=== PATIENT | male | born 1950 | race Caucasian/White ===

== ENCOUNTER → 2023-05-27 07:36 | Outpatient (REF) | payer BC, SELFPAY | LOC: RAD 07:36 | PROVIDERS: ATTENDING PHYSICIAN Surgery Vascular Surgery; FAMILY PHYSICIAN Family Medicine | DX: I86.8 Varicose veins of other specified sites (principal) | CPT/HCPCS: 93971 ==

== ENCOUNTER → 2023-12-21 06:18 | Day surgery (SDC) | payer BC, SELFPAY | LOC: GI 06:18 | PROVIDERS: ATTENDING PHYSICIAN Internal Medicine Gastroenterology | DX: K51.00 Ulcerative (chronic) pancolitis without complications (principal); Z53.9 Procedure and treatment not carried out, unspecified reason; K51.80 Other ulcerative colitis without complications | CPT/HCPCS: 45380; 88305; 88342 ==

== ENCOUNTER → 2024-04-08 09:22 | Outpatient (REF) | payer BC, SELFPAY | LOC: HWRAD 09:22 | PROVIDERS: ATTENDING PHYSICIAN Internal Medicine Critical Care Medicine; FAMILY PHYSICIAN Family Medicine | DX: J84.9 Interstitial pulmonary disease, unspecified (principal) | CPT/HCPCS: 71046 ==

== ENCOUNTER 2024-05-04 08:32 | Day surgery (SDC) | payer BC, SELFPAY | END 2024-05-04 12:54 | disposition home or self-care (01) | LOC: GI 08:32 | PROVIDERS: ATTENDING PHYSICIAN Internal Medicine Gastroenterology | DX: Z12.11 Encounter for screening for malignant neoplasm of colon (principal); K51.80 Other ulcerative colitis without complications; Z98.0 Intestinal bypass and anastomosis status | CPT/HCPCS: 45380; 88305 ==

== ENCOUNTER → 2024-06-06 07:50 | Outpatient (REF) | payer BC, SELFPAY | LOC: RAD 07:50 | PROVIDERS: ATTENDING PHYSICIAN Surgery Vascular Surgery; FAMILY PHYSICIAN Family Medicine | DX: I86.8 Varicose veins of other specified sites (principal) | CPT/HCPCS: 93971 ==

== ENCOUNTER 2024-07-12 14:06 | Inpatient (IN) | payer MEDICARE, BC, SELFPAY ==
[2024-07-01 09:00] LABS: Hematocrit 44.3 % (39.0-52.0); Hemoglobin 15.7 g/dL (13.0-18.0); Mean Corp Hgb Conc. 35.4 g/dL (33.0-37.0); Mean Corpuscular Hgb 31.4 pg (27.0-31.0); Mean Corpuscular Volume 88.6 fL (80.0-94.0); Mean Platelet Volume 10.4 fL (7.4-10.4); Platelet Count 227 10^3/uL (130-400); White Blood Cell Count 10.7 10^3/uL (4.8-10.8)
[2024-07-01 09:09] LABS: INR 0.99; PT 13.4 Sec (11.4-14.6)
[2024-07-01 09:10] LABS: APTT 36.1 Sec (23.4-35.0)
[2024-07-01 10:21] LABS: Glycohemoglobin (HgbA1c) 5.1 % (4.0-5.6)
[2024-07-01 11:14] LABS: ALT (SGPT) 19 U/L (0-50); AST (SGOT) 21 U/L (17-59); Albumin 4.1 g/dl (3.5-5.0); Alkaline Phosphatase 71 U/L (38-126); Blood Urea Nitrogen 15 mg/dl (9-20); Calcium 8.9 mg/dl (8.4-10.2); Carbon Dioxide 24 mmol/L (22-30); Chloride 105 mmol/L (98-107); Glucose 91 mg/dl (70-99); Potassium 4.2 mmol/L (3.5-5.1); Sodium 141 mmol/L (135-145); Total Bilirubin 0.6 mg/dl (0.2-1.3); eGFR > 60.00
[2024-07-01 13:20] VITALS: BMI 30.6
[2024-07-01 15:10] LABS: Beta HCG Quantitative < 2.39 mIU/ml
[2024-07-01 17:17] LABS: CEA 0.66 ng/ml
[2024-07-12 14:30] VITALS: BP 140/70
--- NOTE | 2024-07-12 14:30 | HPS.HSE ---
Family Physician
-
Family Physician: Atif Hernandez
Chief Complaint
-
ulcerative colitis
History of Present Illness
74-year-old male with a history of ulcerative colitis presents today for a bowel prep prior to scheduled surgery tomorrow. He initially saw Dr. Sharma on 05/30/2024 in clinic, referred by Dr. Franks, for management of dysplasia in the setting of
chronic ulcerative colitis. He has been undergoing surveillance colonoscopies throughout the years on 05/04/2024 there is diffuse moderate inflammation in the entire remaining colon that was worse distally. The biopsies revealed mild to moderate
chronic active colitis and a biopsy at 40 cm showed dysplasia. At 30 cm there was low-grade dysplasia and at 10 smears there is high-grade dysplasia in the background of chronic active colitis. In the past he underwent a laparoscopic right
colectomy in 2013 for an adenoma with focal high-grade dysplasia. He also underwent an open umbilical hernia repair at the same time. Currently he has multiple bowel movements daily and often at times has urgency and incontinence. He denies any
abdominal pain or bleeding. He is on Skyrizi and mesalamine. He had a long discussion with Dr. Sharma in clinic regarding the above findings. It was determined the patient would undergo a robotic proctocolectomy. The patient agreed to proceed.
He has been admitted to undergo a bowel prep today and then will undergo surgery tomorrow.
Medical History
Past Medical History
Past Medical History: Reports Other
Additional Past Medical History:
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 C. difficile
Past Surgical History: Reports Other
Additional Past Surgical History:
Right ankle, bilateral knee meniscus repair, ankle debridement, ACL repair, cataract surgery, laparoscopic right colectomy in 2013, left knee replacement
Social History
Tobacco: Former Smoker (02-apbi-lxan history quit in 1989)
Drug: None
Family History
Family History: Not pertinent
Allergies / Home Medications
Allergies reflects when Allergies were last updated in [employer].
Home Medications with original date entered in [employer]
Allergy/Medication List:
Allergies: Remicade, pollen
Medications:
B12 1 pill daily
Claritin 10 mg p.o. daily
Irbesartan 150 mg p.o. daily
Iron supplement 325 mg p.o. daily
Mesalamine 1.2 g tablet delayed release 2 tabs with a meal
Multivitamin 1 tab daily
Probiotic 250 mg capsule once daily
Simethicone as needed
Skyrizi infusion
Vitamin D3
Review of Systems
-
History Source: Patient
A 12 point ROS was completed and negative except as noted: Yes
Abdomen/GI: Reports Other (Urgency and incontinence)
Physical Exam
Physical Exam
General: Well Developed, Well Nourished and No Apparent Distress
GI: Soft, Non Tender and Non Distended
Skin: Warm and Dry
Neuro: AO x 3
Psych: Calm
Laboratory Results
-
Laboratory Results
PT 13.4 Sec (11.4-14.6) 07/01/24 06:56
INR 0.99 07/01/24 06:56
APTT 36.1 Sec (23.4-35.0) H 07/01/24 06:56
Total Bilirubin 0.6 mg/dl (0.2-1.3) 07/01/24 06:56
AST 21 U/L (17-59) 07/01/24 06:56
ALT 19 U/L (0-50) 07/01/24 06:56
Alkaline Phosphatase 71 U/L (38-126) 07/01/24 06:56
Data Reviewed
-
Old Records: Reviewed
Impression/Plan
-
IMPRESSION: 74-year-old male with a history of ulcerative colitis presents to [facility] for a preop bowel prep followed by a proctosigmoidectomy tomorrow
PLAN:
- Labs pending
- Clear liquids today and n.p.o. at midnight
- Preop medications ordered
- Bowel prep today
- Notified wound RN patient is here and undergoing surgery
--- NOTE | 2024-07-12 14:41 | PTCARENOTE ---
Pt arrived to 2S via wheelchair. ambulated to bed independently gait steady. Full assessment completed, stoma markings noted. ONDINA RN and Daisha Bryant PA-c notified of pts arrival. Pt instructed to ring for assistance, verbalized understanding. Bed
locked and in the lowest position, safety maintained. Oriented to room and call tan, family at bedside.
[2024-07-12] MEDS: FLAGYL 1000 MG PO ×2 (14:55→15:35)
[2024-07-12] MEDS: NEOMYCIN 1000 MG PO ×2 (14:55→15:35)
[2024-07-12] MEDS: NULYTELY SOLUTION 4 LITERS PO (15:36)
[2024-07-12] MEDS: NSS 1000 IV (15:39)
[2024-07-12 15:49] LABS: % Basophils 0.6 % (0-2); % Eosinophils 2.5 % (0-6); % Immature Granulocytes 0.2 % (0-0.5); % Lymphocytes 14.2 % (20.5-51.1); % Monocytes 14.1 % (1.7-9.3); % Neutrophils 68.4 % (42.2-75.2); Absolute Basophils 0.1 10^3/uL (0-0.2); Absolute Eosinophils 0.2 10^3/uL (0-0.7); Absolute Lymphocytes 1.2 10^3/uL (1.2-3.4); Absolute Monocytes 1.1 10^3/uL (0.1-0.6); Absolute Neutrophils 5.5 10^3/uL (1.4-6.5); Hematocrit 41.1 % (39.0-52.0); Hemoglobin 14.6 g/dL (13.0-18.0); Mean Corp Hgb Conc. 35.5 g/dL (33.0-37.0); Mean Corpuscular Hgb 31.3 pg (27.0-31.0); Mean Platelet Volume 9.9 fL (7.4-10.4); Nucleated Red Blood Cells % 0 % (-); Platelet Count 201 10^3/uL (130-400); Red Blood Cell Count 4.67 10^6/uL (4.70-6.10); White Blood Cell Count 8.1 10^3/uL (4.8-10.8)
[2024-07-12 15:59] LABS: INR 1.02; PT 13.7 Sec (11.4-14.6)
[2024-07-12 16:00] LABS: APTT 35.4 Sec (23.4-35.0)
[2024-07-12 16:02] LABS: Blood Urea Nitrogen 9 mg/dl (9-20); Calcium 8.9 mg/dl (8.4-10.2); Carbon Dioxide 25 mmol/L (22-30); Chloride 110 mmol/L (98-107); Estimated Creatinine Clearance 79 ml/min; Glucose 87 mg/dl (70-99); Potassium 4.3 mmol/L (3.5-5.1); Sodium 140 mmol/L (135-145); eGFR > 60.00
[2024-07-12 23:22] VITALS: BP 131/71
[2024-07-13] VITALS (12 sets, daily range): BP systolic 108–135; BP diastolic 61–90
[2024-07-13] MEDS: NEOMYCIN 1000 MG PO
[2024-07-13] MEDS: FLAGYL 1000 MG PO
--- NOTE | 2024-07-13 04:29 | PTCARENOTE ---
pt able tolerate golyte , BM observed clear to yellow fluid, no solid BM noted.
[2024-07-13] MEDS: NSS 1000 IV (05:38)
[2024-07-13] MEDS: HEPARIN 5000 UNITS SC (05:53)
[2024-07-13] MEDS: TYLENOL 1000 MG PO (05:53)
[2024-07-13] MEDS: ENTEREG 12 MG PO (05:54)
[2024-07-13] MEDS: NEURONTIN 600 MG PO (05:54)
[2024-07-13 07:25] LABS: % Basophils 0.4 % (0-2); % Eosinophils 2.7 % (0-6); % Immature Granulocytes 0.3 % (0-0.5); % Lymphocytes 12.4 % (20.5-51.1); % Monocytes 14.5 % (1.7-9.3); % Neutrophils 69.7 % (42.2-75.2); Absolute Eosinophils 0.2 10^3/uL (0-0.7); Absolute Lymphocytes 0.9 10^3/uL (1.2-3.4); Hemoglobin 14.6 g/dL (13.0-18.0); Mean Corp Hgb Conc. 34.8 g/dL (33.0-37.0); Mean Corpuscular Hgb 30.7 pg (27.0-31.0); Mean Corpuscular Volume 88.4 fL (80.0-94.0); Mean Platelet Volume 10.1 fL (7.4-10.4); Nucleated Red Blood Cells % 0 % (-); Platelet Count 216 10^3/uL (130-400); Red Blood Cell Count 4.75 10^6/uL (4.70-6.10); Red Cell Dist. Width 12.9 % (11.5-14.5); White Blood Cell Count 7.1 10^3/uL (4.8-10.8)
--- NOTE | 2024-07-13 07:37 | PTCARENOTE ---
Geraldine pts granddaughter to be notified post sx [phone].
[2024-07-13 07:40] LABS: Blood Urea Nitrogen 8 mg/dl (9-20); Calcium 8.7 mg/dl (8.4-10.2); Carbon Dioxide 24 mmol/L (22-30); Chloride 107 mmol/L (98-107); Estimated Creatinine Clearance 79 ml/min; Glucose 78 mg/dl (70-99); Potassium 4.1 mmol/L (3.5-5.1); Sodium 140 mmol/L (135-145); eGFR > 60.00
--- NOTE | 2024-07-13 16:05 | W.IMMPOSTOP ---
Surgical Immed Post Op Note
-
Primary Surgeon: Angelito Sharma MD
Revenue Accountant: AURELIANO Verduzco
Pre-op Diagnosis: Chronic ulcerative colitis with severe dysplasia
Post-op Diagnosis: Same
Procedure Performed: Robotic proctocolectomy with permanent ileostomy
Anesthesia Type: GET
Specimen / Cultures: Colon and rectum (previous anastomosis is proximal)
Estimated Blood Loss: 200cc
Complications: None
Operative Findings: Chronic ulcerative colitis
Proctectomy with 1cm cuff of rectum left
Previous ileocolectomy
No obvious cancer or evidence of metastatic disease
Small bilateral indirect inguinal hernias
NGT in the stomach and #19 Lucio drain in the pelvis
Pema ileostomy
Left update message with his granddaughter.
--- NOTE | 2024-07-13 16:21 | CM ---
Patient not in room, Patient in OR, no family at bedside or waiting room. Will need to complete assessment.
[2024-07-13 16:56] LABS: Hematocrit 36.7 % (39.0-52.0); Hemoglobin 13.2 g/dL (13.0-18.0); Mean Corpuscular Volume 89.1 fL (80.0-94.0); Mean Platelet Volume 9.6 fL (7.4-10.4); Platelet Count 197 10^3/uL (130-400); Red Blood Cell Count 4.12 10^6/uL (4.70-6.10); Red Cell Dist. Width 12.9 % (11.5-14.5); White Blood Cell Count 17.2 10^3/uL (4.8-10.8)
[2024-07-13 17:12] LABS: Blood Urea Nitrogen 11 mg/dl (9-20); Calcium 7.3 mg/dl (8.4-10.2); Carbon Dioxide 22 mmol/L (22-30); Chloride 108 mmol/L (98-107); Estimated Creatinine Clearance 79 ml/min; Glucose 172 mg/dl (70-99); Potassium 4.4 mmol/L (3.5-5.1); Sodium 138 mmol/L (135-145); eGFR > 60.00
--- NOTE | 2024-07-13 17:53 | PTCARENOTE ---
patient returned from PACU. lethargic, arousable to voice. 2L O2 via NC, HR reg. abdomen with 5 lap sites and RUQ ileostomy, LLQ EDDIE drain with small amount of sang output. NG tube to low cont suction. patient has 16 Fr Nance catheter draining clear
yellow and secured with stat lock.
[2024-07-13] MEDS: NORMOSOL-R/PLASMALYTE-A 1000 IV (18:12)
[2024-07-13] MEDS: TORADOL 15 MG IV ×2 (18:13→23:05)
[2024-07-13] MEDS: TYLENOL 650 MG PO ×2 (20:40→23:53)
[2024-07-14 03:31] VITALS: BP 117/64
[2024-07-14] MEDS: TORADOL 15 MG IV ×4 (04:45→22:49)
[2024-07-14] MEDS: TYLENOL 650 MG PO ×4 (04:45→21:00)
[2024-07-14] MEDS: NORMOSOL-R/PLASMALYTE-A 1000 IV ×2 (04:45→17:03)
[2024-07-14 06:21] VITALS: BMI 29.8
[2024-07-14 07:42] LABS: % Basophils 0.1 % (0-2); % Immature Granulocytes 0.6 % (0-0.5); % Lymphocytes 2.8 % (20.5-51.1); % Monocytes 11.5 % (1.7-9.3); Absolute Immature Granulocytes 0.1 10^3/uL (0-0.05); Absolute Lymphocytes 0.6 10^3/uL (1.2-3.4); Absolute Monocytes 2.4 10^3/uL (0.1-0.6); Absolute Neutrophils 17.8 10^3/uL (1.4-6.5); Hematocrit 37.3 % (39.0-52.0); Hemoglobin 13.1 g/dL (13.0-18.0); Mean Corp Hgb Conc. 35.1 g/dL (33.0-37.0); Mean Corpuscular Volume 88.4 fL (80.0-94.0); Mean Platelet Volume 10.1 fL (7.4-10.4); Nucleated Red Blood Cells % 0 % (-); Platelet Count 209 10^3/uL (130-400); Red Blood Cell Count 4.22 10^6/uL (4.70-6.10); Red Cell Dist. Width 13.2 % (11.5-14.5); White Blood Cell Count 20.9 10^3/uL (4.8-10.8)
[2024-07-14] MEDS: CRESTOR 5 MG PO (07:48)
[2024-07-14] MEDS: AVAPRO 75 MG PO (07:48)
[2024-07-14] MEDS: ENTEREG 12 MG PO ×2 (07:49→21:00)
[2024-07-14] MEDS: INVANZ 60 MG IV (07:49)
[2024-07-14] MEDS: ZYRTEC 10 MG PO (07:49)
[2024-07-14 07:55] VITALS: BP 114/64
[2024-07-14 08:05] LABS: Blood Urea Nitrogen 13 mg/dl (9-20); Calcium 7.7 mg/dl (8.4-10.2); Carbon Dioxide 23 mmol/L (22-30); Chloride 107 mmol/L (98-107); Estimated Creatinine Clearance 64 ml/min; Glucose 121 mg/dl (70-99); Potassium 4.5 mmol/L (3.5-5.1); Sodium 138 mmol/L (135-145); eGFR > 60.00
--- NOTE | 2024-07-14 08:12 | W.PN.CRS1 ---
Today's Communication / Plan
-
maintain ngt
colostomy teaching
oob with pt/ot
lovenox
d/c ramirez
Assessment/Plan
-
POD#1 Robotic proctocolectomy with permanent ileostomy
WBC: 20.9, Hgb 13.1
Vitals normal
NGT: 100ml
EDDIE drain: 390ml
-Maintain NGT until bowel function
-Wound RN for colostomy teaching
-OOB with PT/OT
-D/C ramirez
-Start lovenox for dvt prophylaxis, TEDS/SCDS in place
-Pain control: tylenol/toradol standing, Dilaudid PRN
-Maintain EDDIE drain until discharge
-OR pathology pending
Subjective Data
Procedure
07/13/2024- Robotic proctocolectomy with permanent ileostomy
Subjective Data
Date of Service: July 14, 2024
Patient states he wells well. His pain is controlled. He has no nausea or vomiting. An ngt is in place. He currently has no complaints.
Objective Data
-
Vital Signs
Temp Pulse Resp BP Pulse Ox
98.1 F 82 18 117/64 96
07/14/24 03:31 07/14/24 03:31 07/14/24 03:31 07/14/24 03:31 07/14/24 03:31
Intake & Output
07/13/24 07/14/24 07/15/24
06:59 06:59 06:59
Intake Total 2144 960 / 1050 90 / 90
Output Total 1939 100 / 100
Balance 2144 -980 / -990 -10 / -10
Intake:
Oral fluids 1919
IV fluids (Total) 225 / 225 960 / 960
Amount instilled into GI Tube ( 90 / 90
Total)
[place]ump 90 / 90
Output:
Liquid stool amount 350 / 350
Ileostomy 300 / 300
Rectum 50 / 50
Drain Output (Total) 390 / 390
Left Lower Abdomen A 390 / 390
Gastrointestinal tube output ( 100 / 100
Total)
[place] Sump 100 / 100
Urine, Ramirez 1200 / 1200
Lab Results
07/14/24 06:32
07/14/24 06:32
Physical Exam
-
General: No Acute Distress and AOx3
Abdomen: Soft, Non Distended, Tender (around incisions (mild)) and Other (colostomy warm and pink, no output yet)
Skin: Warm and Dry
--- NOTE | 2024-07-14 11:43 | WOUNDNOTE ---
[facility] RN note: Patient s/p end ileostomy yesterday. Stoma pink and budded. Small liquid dark brown effluent emptied from pouch. No flatus. Instructed patient how to open and close pouch, how to cut wafer and snap on pouch. Ostomy supplies ([place]
wafer # [id number], Phylicia seal and [place] pouch # [id number]) and ileostomy teaching folder given. Patient gave permission and signed [employer] secure ostomy starter kit fax request form. Sacral/buttocks with some MASD (patient confirmed was present on
admission). Area cleansed with angela cleansing wipe. Skin on heels intact. Patient turns self in bed. Heels off bed with pillow. Patient plans to request VN for discharge. Will plan for appliance change with teaching tomorrow.
[2024-07-14 12:58] VITALS: BP 130/66; PULSE 82; O2SAT 88
--- NOTE | 2024-07-14 14:03 | PTCARENOTE ---
ramirez removed and the patient is due to void by 6pm. oob to a chair. NG tube to low cont suction. IVF infusing. all needs anticipated
[2024-07-14] MEDS: TYLENOL PO (14:09)
--- NOTE | 2024-07-14 14:14 | WOUNDNOTE ---
[facility] RN note: Enrolled patient in [place] ostomy secure starter kit.
[2024-07-14 15:10] VITALS: BP 121/72
--- NOTE | 2024-07-14 15:54 | CM ---
Reviewed the chart notes and spoke with the patient at the bedside. The patient's granddaughter resides with the patient in a three story home with one step to enter. The patient reports no DME or SNF in the past. Has had [facility] for infusion
of Brayan. The patient confirmed [facility] of choice [facility]. Order received for VN. Discussed with patient area VNs. Selected . Referral sent via [facility] Port. CM continues to be available to patient/family and is
monitoring medical plan for needs at discharge.
Plan: Discharge to home with VN services.
[2024-07-14] MEDS: LOVENOX 40 MG SC (17:16)
[2024-07-14] MEDS: MELATONIN 5 MG TUBE (22:48)
[2024-07-14 23:00] VITALS: BP 143/71
[2024-07-15] MEDS: TYLENOL PO (00:45)
[2024-07-15] MEDS: TYLENOL 650 MG PO ×5 (04:11→19:44)
[2024-07-15] MEDS: TORADOL 15 MG IV ×4 (04:12→22:56)
[2024-07-15 05:48] VITALS: BMI 29.6
[2024-07-15 07:50] VITALS: BP 128/60
[2024-07-15] MEDS: INVANZ 60 MG IV (08:58)
[2024-07-15] MEDS: ZYRTEC 10 MG PO (08:59)
[2024-07-15] MEDS: AVAPRO 75 MG PO (08:59)
[2024-07-15] MEDS: ENTEREG 12 MG PO ×2 (08:59→19:44)
[2024-07-15] MEDS: CRESTOR 5 MG PO (08:59)
--- NOTE | 2024-07-15 09:04 | WOUNDNOTE ---
[facility] RN note: Patient's ileostomy appliance emptied for green/brown bilious like liquid. Patient's stoma pink and slightly budded. Peristomal skin intact. Patient reports he is moving often and getting out of bed. Reinstructed patient pouch emptying
and instructed how to change pouch using [place] wafer #[id number], Phylicia seal and [place] pouch # [id number]. Ostomy supplies and ileostomy teaching folder in room. Next appliance change due Thursday. VN planned when discharged.
[2024-07-15] MEDS: NORMOSOL-R/PLASMALYTE-A 1000 IV ×2 (09:05→17:08)
[2024-07-15 09:47] VITALS: BP 118/62; PULSE 81; O2SAT 94
--- NOTE | 2024-07-15 10:12 | CM ---
CM reviewed medical records. CM was consulted for VN. As per notes, patient has been referred to VN.
PLAN: home with VN for ostomy care/teaching.
--- NOTE | 2024-07-15 11:12 | VNURNOTE ---
Home Health Liaison met with patient at bedside to discuss [facility] nurse/therapy, visits, schedule and homebound status. Patient is agreeable and understands that visits at home will be 2-3 x per week to assess and teach medical management and ostomy
and drain teaching. Patient is aware that [facility] will contact them for start of care in 1-2 days after discharge from .
[facility] referral updated in [facility] Port, accepted.
[2024-07-15 12:04] VITALS: BMI 29.6
--- NOTE | 2024-07-15 12:04 | W.PN.CRS1 ---
Today's Communication / Plan
-
ngt removed
labs
?clears later
wound care
Assessment/Plan
-
POD#2 Robotic proctocolectomy with permanent ileostomy
Labs pending
Vitals normal
NGT: removed 07/15
VANIA drain: 400ml
-NGT removed by Dr. Sharma at bedside
-Wound RN for colostomy teaching
-OOB with PT/OT
-Straight cath x 1 after ramirez removal, if continues, will start Floxmax
-Lovenox for dvt prophylaxis, TEDS/SCDS in place
-Pain control: tylenol/toradol standing, Dilaudid PRN
-Maintain VANIA drain until discharge
-OR pathology pending
-Will need Eliquis 2.5mg BID for 3 weeks on discharge due to IBD
-Possible clears later today if no nausea or vomiting, will re-evaluate later today
Subjective Data
Procedure
07/13/2024- Robotic proctocolectomy with permanent ileostomy
Subjective Data
Date of Service: July 15, 2024
Patient states he feels well. He has no nausea or vomiting. Pain controlled. Awaiting bowel function. He had to straight cath yesterday.
Objective Data
-
Vital Signs
Temp Pulse Resp BP Pulse Ox
98.1 F 81 18 128/60 94
07/15/24 07:50 07/15/24 07:50 07/15/24 07:50 07/15/24 07:50 07/15/24 07:50
Intake & Output
07/14/24 07/15/24 07/16/24
06:59 06:59 06:59
Intake Total 960 / 1050 1230 / 1230
Output Total 1939 / 2039 2160 / 216 80 / 80
Balance -980 / -990 -930 / -930 -80 / -80
Intake:
Oral fluids 90 / 90
IV fluids (Total) 960 / 960 960 / 960
Amount instilled into GI Tube ( 180 / 180
Total)
[place] Sump 180 / 180
Output:
Liquid stool amount 350 / 350 525 / 525
Ileostomy 300 / 300 525 / 525
Rectum 50 / 50
Drain Output (Total) 390 / 390 235 / 235 80 / 80
Left Lower Abdomen A 390 / 390 235 / 235 80 / 80
Gastrointestinal tube output ( 500 / 500
Total)
[place] Sump 500 / 500
Urine, Ramirez 1200 / 1200
Urine, Voided 300 / 300
Straight cath output 600 / 600
Other:
Number of approximated SMALL 1
amounts of urine
Number of approximated MODERATE 1
amounts of urine
Lab Results
07/14/24 06:32
07/14/24 06:32
Physical Exam
-
General: No Acute Distress and AOx3
Abdomen: Soft, Non Distended, Non Tender and Other (vania serosanginous, ileostomy warm and pink)
Skin: Warm and Dry
Incision: Clear, Dry, Intact
[2024-07-15 12:32] LABS: % Basophils 0.2 % (0-2); % Eosinophils 0.1 % (0-6); % Immature Granulocytes 0.5 % (0-0.5); % Lymphocytes 4.1 % (20.5-51.1); % Monocytes 13.1 % (1.7-9.3); Absolute Immature Granulocytes 0.1 10^3/uL (0-0.05); Absolute Lymphocytes 0.8 10^3/uL (1.2-3.4); Absolute Monocytes 2.5 10^3/uL (0.1-0.6); Absolute Neutrophils 15.8 10^3/uL (1.4-6.5); Hemoglobin 14.5 g/dL (13.0-18.0); Mean Corp Hgb Conc. 34.5 g/dL (33.0-37.0); Mean Corpuscular Volume 89.7 fL (80.0-94.0); Mean Platelet Volume 9.9 fL (7.4-10.4); Nucleated Red Blood Cells % 0 % (-); Platelet Count 222 10^3/uL (130-400); Red Blood Cell Count 4.68 10^6/uL (4.70-6.10); Red Cell Dist. Width 13.4 % (11.5-14.5); White Blood Cell Count 19.3 10^3/uL (4.8-10.8)
[2024-07-15 12:52] LABS: Blood Urea Nitrogen 16 mg/dl (9-20); Calcium 8.5 mg/dl (8.4-10.2); Carbon Dioxide 27 mmol/L (22-30); Chloride 107 mmol/L (98-107); Estimated Creatinine Clearance 58 ml/min; Glucose 88 mg/dl (70-99); Potassium 4.3 mmol/L (3.5-5.1); Sodium 140 mmol/L (135-145); eGFR > 60.00
[2024-07-15] MEDS: LOVENOX 40 MG SC (15:38)
[2024-07-15] MEDS: FLOMAX 0.8 MG PO (15:40)
[2024-07-15 15:56] VITALS: BP 116/54
[2024-07-15] MEDS: DILAUDID 0.5 MG IV (19:47)
[2024-07-15 23:03] VITALS: BP 129/60
[2024-07-16] MEDS: TYLENOL 650 MG PO ×6 (00:29→19:34)
[2024-07-16] MEDS: TORADOL 15 MG IV ×3 (04:31→16:01)
[2024-07-16] MEDS: NORMOSOL-R/PLASMALYTE-A 1000 IV ×2 (04:57→16:01)
[2024-07-16 06:00] VITALS: BMI 29.4
--- NOTE | 2024-07-16 06:17 | PTCARENOTE ---
aprox 4am pt ambulated to restroom attempted to void 10cc of tea colored , blood tinged urine in urinal. Pt was BS 410cc and st cath for 380cc.
[2024-07-16 07:09] LABS: % Basophils 0.2 % (0-2); % Eosinophils 0.4 % (0-6); % Immature Granulocytes 0.6 % (0-0.5); % Lymphocytes 3.9 % (20.5-51.1); % Monocytes 12.4 % (1.7-9.3); % Neutrophils 82.5 % (42.2-75.2); Absolute Eosinophils 0.1 10^3/uL (0-0.7); Absolute Immature Granulocytes 0.1 10^3/uL (0-0.05); Absolute Lymphocytes 0.7 10^3/uL (1.2-3.4); Absolute Monocytes 2.2 10^3/uL (0.1-0.6); Absolute Neutrophils 14.5 10^3/uL (1.4-6.5); Hematocrit 38.2 % (39.0-52.0); Hemoglobin 13.3 g/dL (13.0-18.0); Mean Corp Hgb Conc. 34.8 g/dL (33.0-37.0); Mean Platelet Volume 10.1 fL (7.4-10.4); Nucleated Red Blood Cells % 0 % (-); Platelet Count 207 10^3/uL (130-400); Red Blood Cell Count 4.29 10^6/uL (4.70-6.10); Red Cell Dist. Width 13.3 % (11.5-14.5); White Blood Cell Count 17.5 10^3/uL (4.8-10.8)
[2024-07-16 07:36] LABS: Blood Urea Nitrogen 16 mg/dl (9-20); Carbon Dioxide 27 mmol/L (22-30); Chloride 106 mmol/L (98-107); Estimated Creatinine Clearance 64 ml/min; Glucose 129 mg/dl (70-99); Sodium 137 mmol/L (135-145); eGFR > 60.00
[2024-07-16 07:40] VITALS: BP 105/89
[2024-07-16] MEDS: CRESTOR 5 MG PO (08:41)
[2024-07-16] MEDS: ZYRTEC 10 MG PO (08:41)
[2024-07-16] MEDS: ENTEREG 12 MG PO ×2 (08:41→19:34)
[2024-07-16] MEDS: FLOMAX 0.8 MG PO (08:42)
[2024-07-16] MEDS: AVAPRO PO (08:42)
[2024-07-16] MEDS: INVANZ 60 MG IV (08:43)
--- NOTE | 2024-07-16 13:42 | W.PN.GS2 ---
Today's Communication / Plan
-
-LRD
-If further issues with retention replace Ramirez, obtain UA/UCx
-Trend WBC
Assessment / Plan
-
Patient is a 74 yo M
POD#3 Robotic proctocolectomy with permanent ileostomy
AVSS
Labs notable for downtrend in WBC, stable Hb, normal renal function
Ostomy 1800 cc
EDDIE drain: 215 cc
Postop issues with persistent leukocytosis of unknown exact origin and urinary retention. Continue to BladderScan and if unable to void would recommend replacement of Ramirez. Continue with Flomax. Obtain urine sample for urinalysis and culture.
Completed course of Invanz. Given tolerance of liquid diet and ostomy function plan to advance diet today.
-LRD
-Pain control: Tylenol, Toradol, Oxycodone, Dilaudid PRN
-If further issues with retention replace Ramirez, obtain UA/UCx
-Wound RN for colostomy teaching
-OOB with PT/OT
-DVT: Lovenox, SCDs
-Trend WBC
-Maintain EDDIE drain until discharge
-OR pathology pending
-Will need Eliquis 2.5mg BID for 3 weeks on discharge due to IBD
Subjective Data
-
Date of Service: July 16, 2024
Frustration and discomfort with need for repeat straight catheterizations. Denies any burning with urination. No prior issues reported. No nausea or vomiting. Abdominal pain well-controlled. Passing flatus and loose stool via ileostomy.
Ambulating. Afebrile.
Objective Data
-
Intake and Output
07/15/24 07/16/24 07/17/24
06:59 06:59 06:59
Intake Total 1230 / 1230 2610 / 2610
Output Total 2160 / 2160 2735 / 2735
Balance -930 / -930 -125 / -125
Intake:
Oral fluids 90 / 90 630 / 630
IV fluids (Total) 960 / 960 1920 / 1920
IV piggybacks 60 / 60
Amount instilled into GI Tube ( 180 / 180
Total)
[place] Sump 180 / 180
Output:
Liquid stool amount 525 / 525 2049
Ileostomy 525 / 525 2049
Drain Output (Total) 235 / 235 295 / 295
Left Lower Abdomen A 235 / 235 295 / 295
Gastrointestinal tube output ( 500 / 500
Total)
[place] Sump 500 / 500
Urine, Voided 300 / 300 10 / 10
Straight cath output 600 / 600 380 / 380
Other:
Number of approximated SMALL 1
amounts of urine
Number of approximated MODERATE 1
amounts of urine
Vital Signs
Temp Pulse Resp BP Pulse Ox
98.3 F 92 18 105/89 93
07/16/24 07:40 07/16/24 08:42 07/16/24 07:40 07/16/24 08:42 07/16/24 07:40
Lab Results
07/16/24 06:11
07/16/24 06:11
Calcium 8.0 mg/dl (8.4-10.2) L 07/16/24 06:11
Total Bilirubin 0.6 mg/dl (0.2-1.3) 07/01/24 06:56
AST 21 U/L (17-59) 07/01/24 06:56
ALT 19 U/L (0-50) 07/01/24 06:56
Alkaline Phosphatase 71 U/L (38-126) 07/01/24 06:56
Total Protein 7.0 g/dl (6.3-8.2) 07/01/24 06:56
Albumin 4.1 g/dl (3.5-5.0) 07/01/24 06:56
Physical Exam
-
Gen: NAD
Abd: soft, NT, minimal distension, non-peritoneal, incisions c/d/i - no erythema, ecchymosis or drainage, ostomy PPV - liquid bilious stool in appliance
Patient has a ramirez catheter: No
Patient has a central line: No
[2024-07-16 14:36] LABS: Urine Albumin 2+ (Neg - Trace); Urine Bilirubin Negative (Negative); Urine Character Clear (Clear); Urine Color Amber; Urine Glucose Negative (Negative); Urine Ketone Negative (Negative); Urine Leukocyte 1+ (Negative); Urine Nitrite Positive (Negative); Urine Occult Blood 4+ (Negative); Urine Urobilinogen 1+ (Neg - 1+)
--- NOTE | 2024-07-16 14:38 | PTCARENOTE ---
Nance catheter inserted by this RN d/t urinary retention. Bladder scanned for 370 at 1200, bladder scanned again at 1400 for 430. Patient attempted voiding multiple times but was unsuccessful. Stated he did not feel the urge to void. Nance to be
removed 06/19 at 0600.
[2024-07-16 14:47] LABS: Urine Squamous Cell 0-2 /LPF (Few)
[2024-07-16 14:48] LABS: Urine Bacteria Few (Negative); Urine Red Blood Cell 50-60 /HPF (0-2); Urine White Cell 0-2 /HPF (0-5)
[2024-07-16 15:50] VITALS: BP 116/57
[2024-07-16] MEDS: LOVENOX 40 MG SC (17:22)
[2024-07-16] MEDS: DILAUDID 0.5 MG IV (19:34)
--- NOTE | 2024-07-16 21:00 | PTCARENOTE ---
Educated pt on care of ileostomy; need for burping and emptying. Pt stated he has done this already multiple times. Pt was able to demonstrate understanding of how to burp, empty and clean appliance. Care ongoing.
[2024-07-16 22:57] VITALS: BP 120/59
[2024-07-17] MEDS: TYLENOL 650 MG PO ×6 (00:03→19:51)
[2024-07-17] MEDS: TORADOL 15 MG IV ×4 (00:04→16:59)
[2024-07-17 00:05] VITALS: BP 123/55
[2024-07-17 07:05] VITALS: BMI 29.1
[2024-07-17 08:06] LABS: Hematocrit 35.4 % (39.0-52.0); Hemoglobin 12.5 g/dL (13.0-18.0); Mean Corp Hgb Conc. 35.3 g/dL (33.0-37.0); Mean Corpuscular Hgb 31.3 pg (27.0-31.0); Mean Corpuscular Volume 88.7 fL (80.0-94.0); Mean Platelet Volume 9.9 fL (7.4-10.4); Platelet Count 221 10^3/uL (130-400); Red Blood Cell Count 3.99 10^6/uL (4.70-6.10); Red Cell Dist. Width 13.1 % (11.5-14.5); White Blood Cell Count 13.4 10^3/uL (4.8-10.8)
[2024-07-17 08:10] VITALS: BP 115/71
[2024-07-17 08:17] LABS: Blood Urea Nitrogen 19 mg/dl (9-20); Calcium 7.9 mg/dl (8.4-10.2); Carbon Dioxide 26 mmol/L (22-30); Chloride 107 mmol/L (98-107); Estimated Creatinine Clearance 64 ml/min; Glucose 91 mg/dl (70-99); Potassium 3.7 mmol/L (3.5-5.1); Sodium 137 mmol/L (135-145); eGFR > 60.00
[2024-07-17] MEDS: FLOMAX 0.8 MG PO (08:22)
[2024-07-17] MEDS: CRESTOR 5 MG PO (08:22)
[2024-07-17] MEDS: AVAPRO 75 MG PO (08:22)
[2024-07-17] MEDS: ENTEREG 12 MG PO ×2 (08:22→19:51)
[2024-07-17] MEDS: ZYRTEC 10 MG PO (08:22)
[2024-07-17] MEDS: NORMOSOL-R/PLASMALYTE-A IV (09:10)
[2024-07-17] MEDS: NSS 1000 IV (11:03)
--- NOTE | 2024-07-17 11:22 | W.PN.GS2 ---
Addendum entered and electronically signed by Umang Amezcua MD 07/17/24 13:31:
Patient seen and examined.
No specific complaints. Pain well-controlled. Does feel rundown. Tolerating diet, denies any nausea, vomiting, or increased abdominal distention. Passing liquid stool via ileostomy. Ramirez catheter placed and draining dark urine. Afebrile.
Ambulating.
Gen: NAD
Abd: soft, NT, minimal distension, non-peritoneal, incisions c/d/i - no erythema, ecchymosis or drainage, ostomy PPV - liquid dark bilious output, minimal debris
: Ramirez with dark urine and some sediment
Ostomy 1225 cc
EDDIE drain: 105 cc
Ramirez 900
Patient is a 74 yo M POD#4 robotic proctocolectomy with permanent ileostomy
AVSS
Labs notable for downtrend in WBC, mild acute anemia likely secondary to hemodilution as well as expected blood loss in OR, normal renal function
Postoperative monitoring of dietary tolerance as well as hydration status and ileostomy outputs. Plan to DC IV and administer a IV bolus of 1 L lactated Ringer's. Issues with urinary retention - Ramirez re-placed on 07/16, UA abnormal. Dispo plan
pending as patient lives alone and will likely need assistance with ostomy management.
Plan:
-LRD
-Pain control: Tylenol, Toradol, Oxycodone, Dilaudid PRN
-Follow UCx and WBC off abx
-Wound RN for colostomy teaching
-OOB with PT/OT. CM following to assist with dispo planning. Pt concerned about going home alone.
-DVT: Lovenox, SCDs
-Follow ileostomy outputs
-Maintain EDDIE drain until discharge
-OR pathology pending
-C/W Ramirez and flomax, will plan VT prior to d/c
-Will need Eliquis 2.5mg BID for 3 weeks on discharge due to IBD
Original Note:
Today's Communication / Plan
-
LRD
Ramirez
Assessment / Plan
-
Patient is a 74 yo M POD#4 Robotic proctocolectomy with permanent ileostomy
AVSS
Labs notable for downtrend in WBC
Mild acute anemia likely secondary to hemodilution as well as expected blood loss in OR
Good renal function
Ostomy 1225 cc
EDDIE drain: 105 cc
Ramirez 900
07/16: ramirez placed for urinary retention. UA abnormal.
Plan:
-LRD, continue
-Pain control: Tylenol, Toradol, Oxycodone, Dilaudid PRN
-Follow urine cx, wbc off abx
-Wound RN for colostomy teaching
-OOB with PT/OT. CM following to assist with dispo planning. Pt concerned about going home alone.
-DVT: Lovenox, SCDs
-Follow ileostomy outputs
-Maintain EDDIE drain until discharge
-OR pathology pending
-C/W ramirez and flomax, will plan VT prior to d/c
-Will need Eliquis 2.5mg BID for 3 weeks on discharge due to IBD
Subjective Data
-
Date of Service: July 17, 2024
Patient seen and examined at bedside with Dr. Amezcua. OOB to chair. Notes fatigue and low energy levels. Denies n/v. Tolerating diet. Minimal pain.
Objective Data
-
Intake and Output
07/16/24 07/17/24 07/18/24
06:59 06:59 06:59
Intake Total 2610 / 2610 1200 / 1200 1280 / 1280
Output Total 2735 / 2735 1730 / 1730 500 / 500
Balance -125 / -125 -530 / -530 780 / 780
Intake:
Oral fluids 630 / 630 240 / 240 480 / 480
IV fluids (Total) 1920 / 1920 960 / 960 800 / 800
IV piggybacks 60 / 60
Output:
Liquid stool amount 2049 1225 / 1225
Ileostomy 2049 1225 / 1225
Drain Output (Total) 295 / 295 55 / 55 50 / 50
Left Lower Abdomen A 295 / 295 55 / 55 50 / 50
Urine, Ramirez 450 / 450 450 / 450
Urine, Voided
Straight cath output 380 / 380
Other:
Number of approximated MODERATE 1
amounts of urine
Number of approximated LARGE 2
amounts of urine
Vital Signs
Temp Pulse Resp BP Pulse Ox
98.3 F 104 18 115/71 96
07/17/24 08:10 07/17/24 08:22 07/17/24 08:10 07/17/24 08:22 07/17/24 08:10
Lab Results
07/17/24 06:34
07/17/24 06:34
Calcium 7.9 mg/dl (8.4-10.2) L 07/17/24 06:34
Total Bilirubin 0.6 mg/dl (0.2-1.3) 07/01/24 06:56
AST 21 U/L (17-59) 07/01/24 06:56
ALT 19 U/L (0-50) 07/01/24 06:56
Alkaline Phosphatase 71 U/L (38-126) 07/01/24 06:56
Total Protein 7.0 g/dl (6.3-8.2) 07/01/24 06:56
Albumin 4.1 g/dl (3.5-5.0) 07/01/24 06:56
Physical Exam
-
Gen: NAD
Abd: soft, NT, minimal distension, non-peritoneal, incisions c/d/i - no erythema, ecchymosis or drainage, ostomy PPV - liquid bilious stool in appliance
Ramirez with dk wing/brown urine
Patient has a rmairez catheter: Yes
Patient has a central line: No
--- NOTE | 2024-07-17 14:10 | CM ---
CM met with pt at bedside to discuss dispo.
He states he is nervous to go home with VN and would like to consider SNF.
As pt has Medicare, no auth needed and pt with skilled need, although doing well in therapy.
CM will send referral to following SNFs: [facility], [facility], [facility].
Goal: short term SNF
[2024-07-17 15:59] VITALS: BP 130/67
[2024-07-17] MEDS: LOVENOX 40 MG SC (17:00)
--- NOTE | 2024-07-17 17:32 | PTCARENOTE ---
Patient has been emptying illeostomy on his own this shift. This nurse observed while patient effectively emptied illeostomy.
[2024-07-17] MEDS: TORADOL IV (23:07)
[2024-07-17] MEDS: TYLENOL PO (23:08)
[2024-07-17 23:10] VITALS: BP 140/65
[2024-07-18] MEDS: TYLENOL 650 MG PO ×4 (04:04→19:49)
[2024-07-18] MEDS: TORADOL 15 MG IV (04:05)
[2024-07-18 05:45] VITALS: BMI 29.3
--- NOTE | 2024-07-18 06:03 | PTCARENOTE ---
Addendum entered by Nathaly Garcia RN 07/18/24 06:14:
Dr. Amezcua notified.
Original Note:
Nance output 200cc of yellow urine overnight. Dr. Sharma notified. Care remains ongoing.
[2024-07-18 07:40] VITALS: BP 141/67
[2024-07-18 08:09] LABS: Hematocrit 36.2 % (39.0-52.0); Hemoglobin 12.7 g/dL (13.0-18.0); Mean Corp Hgb Conc. 35.1 g/dL (33.0-37.0); Mean Corpuscular Hgb 31.1 pg (27.0-31.0); Mean Corpuscular Volume 88.5 fL (80.0-94.0); Mean Platelet Volume 9.6 fL (7.4-10.4); Platelet Count 250 10^3/uL (130-400); Red Blood Cell Count 4.09 10^6/uL (4.70-6.10)
[2024-07-18 08:35] LABS: Blood Urea Nitrogen 16 mg/dl (9-20); Calcium 8.4 mg/dl (8.4-10.2); Carbon Dioxide 26 mmol/L (22-30); Chloride 110 mmol/L (98-107); Estimated Creatinine Clearance 70 ml/min; Glucose 111 mg/dl (70-99); Potassium 3.9 mmol/L (3.5-5.1); Sodium 140 mmol/L (135-145); eGFR > 60.00
[2024-07-18] MEDS: CRESTOR 5 MG PO (08:50)
[2024-07-18] MEDS: AVAPRO 75 MG PO (08:50)
[2024-07-18] MEDS: ENTEREG 12 MG PO (08:50)
[2024-07-18] MEDS: ZYRTEC 10 MG PO (08:53)
[2024-07-18] MEDS: FLOMAX 0.8 MG PO (08:53)
--- NOTE | 2024-07-18 09:20 | W.PN.CRS1 ---
Today's Communication / Plan
-
As below
Assessment/Plan
-
74-year-old male with PMH of UC (with dysplasia), OA, diverticulitis, HLD, kidney stones, history of C. difficile who presents for elective surgery
POD 5 robotic proctocolectomy with end ileostomy
AFVSS, EDDIE removed at bedside
WBC 11.0 from 13.4, Hb stable at 12.7, CR 1.0
� Continue regular diet
� Pain control with Tylenol, Toradol, Dilaudid and oxycodone as needed; discontinued Entereg
� Continue Flomax; will look into void trial versus discharge with leg bag; strict intake/output, ostomy output has decreased to appropriate range
� Continue DVT PPx with Lovenox
� Continue home meds
Dispo�okay for discharge to rehab
Subjective Data
Procedure
07/13/2024- Robotic proctocolectomy with permanent ileostomy
Subjective Data
Date of Service: July 18, 2024
No overnight events.
Pain controlled.
Denies nausea/vomiting. Tolerating diet.
+Ostomy output + Nance
Objective Data
-
Vital Signs
Temp Pulse Resp BP Pulse Ox
97.7 F 99 18 141/67 96
07/18/24 07:40 07/18/24 08:50 07/18/24 07:40 07/18/24 08:50 07/18/24 07:40
Intake & Output
07/17/24 07/18/24 07/19/24
06:59 06:59 06:59
Intake Total 1200 / 1200 2720 / 2720
Output Total 1730 / 1730 1668 / 1668 50 / 50
Balance -530 / -530 1052 / 1052 -50 / -50
Intake:
Oral fluids 240 / 240 1920 / 1920
IV fluids (Total) 960 / 960 800 / 800
Output:
Liquid stool amount 1225 / 1225 600 / 600
Ileostomy 1225 / 1225 600 / 600
Drain Output (Total) 268 / 268 50 / 50
Left Lower Abdomen A 268 / 268 50 / 50
Urine, Nance 450 / 450 800 / 800
Other:
Number of approximated MODERATE 1
amounts of urine
Number of approximated LARGE 2
amounts of urine
Number of unmeasured liquid
stools
Ileostomy 1
Lab Results
07/18/24 07:52
07/18/24 07:52
Physical Exam
-
General: No Acute Distress and AOx3
HEENT: Grossly Normal
Abdomen: Soft, Distended (Minimally distended), Tender (Appropriately tender near incisions), No Guarding, No Rebound and Other (Ostomy pink and productive of stool; EDDIE-serosanguineous output (removed at bedside))
Skin: Warm and Dry
Wound: No Signs of Infection, Dressing in Place (Dermabond) and No Skin Erythema
--- NOTE | 2024-07-18 10:30 | CM ---
Addendum entered by Maggie Piedra 07/18/24 11:29:
Patient agreeable to wheelchair van for transport.
Addendum entered by Maggie Piedra 07/18/24 11:18:
Per Melissa liaison bed available at [facility]
Patient agreeable with [facility]
IMM explained - verbalizes understanding
PLAN: [facility] today
report #: [phone]
fax #: [phone]
transportation forms on chart
Original Note:
Patient met at bedside
Referrals entered in careport-discussed with patient
Await responses
per nursing james to be dc
PLAN: SNF, pending bed availability
[2024-07-18] MEDS: TORADOL IV (11:00)
--- NOTE | 2024-07-18 15:12 | WOUNDNOTE ---
[facility] RN note: Patient for discharge to SNF rehab. Patient stated his daughter took his ostomy supplies to take to the rehab. Patient states he is independent with pouch emptying. Patient aware next ostomy appliance change is due tomorrow. Ostomy
appliance is intact. Emptied pouch for 125ml mushy brown stool. Sacral/buttocks mild chafed skin. Air chair cushion and barrier ointment given. Discussed with LADAN Monsivais. Patient moves self in bed. Patient stated he received the ostomy secure starter
kit at home. Reminded patient to take ostomy teaching folder which is in his room.
[2024-07-18 15:25] VITALS: BP 133/71
[2024-07-18] MEDS: TYLENOL PO (16:00)
--- NOTE | 2024-07-18 16:39 | PTCARENOTE ---
Addendum entered by Yodit Tian RN 07/18/24 17:55:
pt tolerated 2 large qjmypt=017 ml. no urge to void, bladder scan =139ml. Dr Costello notified. plan to continue bladder scans and straight cath as needed. plan to discharge to SNF in am. pt made aware. pt contacted granddaughter. transportation
cancelled and coordinator made aware.
Original Note:
ramirez catheter removed this am at 1015 as ordered. pt with no urge to void, bladder not distended, bladder scan at 3844=038 ml. pt tolerated approximately 600 ml of po liquids. Dr Costello made aware and pt given water and encouraged to drink. will
re scan and monitor urine output after pt drinks liquids.
[2024-07-18] MEDS: LOVENOX 40 MG SC (18:27)
[2024-07-18 23:00] VITALS: BP 140/63
[2024-07-19] MEDS: TYLENOL PO ×2 (00:17→03:59)
[2024-07-19] MEDS: DILAUDID 0.5 MG IV (03:23)
[2024-07-19 06:00] VITALS: BMI 29.3
[2024-07-19 07:11] VITALS: BP 142/71
--- NOTE | 2024-07-19 09:31 | CM ---
Patient seen at bedside
accepted at [facility]
Patient dc held yesterday d/t voiding issue post ramirez dc
ramirez to be reinserted per nurse
Updated Melissa liaison
IMM signed yesterday in chart
patient agreeable transport by wheelchair van
PLAN: [facility]
report #: [phone]
fax #: [phone]
transportation forms on chart
[2024-07-19] MEDS: AVAPRO 75 MG PO (10:19)
[2024-07-19] MEDS: CRESTOR 5 MG PO (10:19)
[2024-07-19] MEDS: TYLENOL 650 MG PO ×2 (10:19→13:29)
[2024-07-19] MEDS: ZYRTEC 10 MG PO (10:20)
[2024-07-19] MEDS: FLOMAX 0.8 MG PO (10:21)
--- NOTE | 2024-07-19 10:54 | W.PN.CRS1 ---
Today's Communication / Plan
-
discharge
Assessment/Plan
-
74-year-old male with PMH of UC (with dysplasia), OA, diverticulitis, HLD, kidney stones, history of C. difficile who presents for elective surgery
POD 6 robotic proctocolectomy with end ileostomy
AFVSS, EDDIE removed at bedside on 07/18
� Continue regular diet
� Pain control with Tylenol, Toradol. Dilaudid and oxycodone as needed; discontinued Entereg
� Continue DVT PPx with Lovenox
� Continue home meds
- pathology pending
- Eliquis for DVT prophylaxis
Dispo�okay for discharge to rehab. Will place ramirez given retention. Follow up with urology in 1-2 weeks. Follow up with Dr. Sharma in 2 weeks.
Subjective Data
Procedure
07/13/2024- Robotic proctocolectomy with permanent ileostomy
Subjective Data
Date of Service: July 19, 2024
Patient states he feels well. He had to be straight cath'ed several times yesterday. Otherwise his pain is controlled. He has no complaints.
Objective Data
-
Vital Signs
Temp Pulse Resp BP Pulse Ox
98.2 F 85 17 142/71 95
07/19/24 07:11 07/19/24 07:11 07/19/24 07:11 07/19/24 07:11 07/19/24 07:11
Intake & Output
07/18/24 07/19/24 07/20/24
06:59 06:59 06:59
Intake Total 2720 / 2720 1919 / 1919
Output Total 1668 / 1668 950 / 950
Balance 1052 / 1052 970 / 970
Intake:
Oral fluids 1919
IV fluids (Total) 800 / 800
Output:
Liquid stool amount 600 / 600 350 / 350
Ileostomy 600 / 600 350 / 350
Drain Output (Total) 268 / 268 50 / 50
Left Lower Abdomen A / 50 / 50
Urine, Ramirez 800 / 800
Urine, Voided 50 / 50
Straight cath output 500 / 500
Other:
Number of unmeasured liquid
stools
Ileostomy 1
Lab Results
07/18/24 07:52
07/18/24 07:52
Physical Exam
-
General: No Acute Distress and AOx3
Abdomen: Soft, Non Distended, Non Tender and Other (ileostomy warm and pink with function)
Skin: Warm and Dry
--- NOTE | 2024-07-19 10:55 | W.PN.CRS1 ---
Today's Communication / Plan
-
As below
Assessment/Plan
-
74-year-old male with PMH of UC (with dysplasia), OA, diverticulitis, HLD, kidney stones, history of C. difficile who presents for elective surgery
POD 6 robotic proctocolectomy with end ileostomy
AFVSS, EDDIE removed at bedside
� Continue regular diet
� Pain control with Tylenol, Toradol. Dilaudid and oxycodone as needed; discontinued Entereg
� Continue Flomax; will bladder scan if >250cc, will insert a Nance with leg bag and outpatient urology follow-up
� Continue DVT PPx with Lovenox
� Continue home meds
- pathology pending
- Eliquis for DVT prophylaxis
Dispo�okay for discharge to rehab
Subjective Data
Procedure
07/13/2024- Robotic proctocolectomy with permanent ileostomy
Subjective Data
Date of Service: July 19, 2024
He is tolerating a regular diet and the ostomy is functioning. Minimal abdominal discomfort.
He hasn't voided since a straight cath at 4am with 500cc. No urge at present.
Objective Data
-
Vital Signs
Temp Pulse Resp BP Pulse Ox
98.2 F 85 17 142/71 95
07/19/24 07:11 07/19/24 07:11 07/19/24 07:11 07/19/24 07:11 07/19/24 07:11
Intake & Output
07/18/24 07/19/24 07/20/24
06:59 06:59 06:59
Intake Total 2720 / 2720 1919
Output Total 1668 / 1668 950 / 950
Balance 1052 / 1052 970 / 970
Intake:
Oral fluids 1919
IV fluids (Total) 800 / 800
Output:
Liquid stool amount 600 / 600 350 / 350
Ileostomy 600 / 600 350 / 350
Drain Output (Total) 268 / 50 / 50
Left Lower Abdomen A 50 / 50
Urine, Nance 800 / 800
Urine, Voided 50 / 50
Straight cath output 500 / 500
Other:
Number of unmeasured liquid
stools
Ileostomy 1
Lab Results
07/18/24 07:52
07/18/24 07:52
Physical Exam
-
General: No Acute Distress
Abdomen: Soft, Non Distended, Non Tender and Other (stoma with semi-formed output (350cc))
Extremities: No Edema and No Calf Tenderness
Incision: Clear, Dry, Intact
--- NOTE | 2024-07-26 13:11 | W.DCSUMMARY ---
Discharge Summary
Discharge Data
Date of Admission: 07/12/24
Date of Discharge: 07/19/24
-
Pending Results: No
Hospital Course
74-year-old male presented to [facility] for an elective robotic proctocolectomy with permanent ileostomy secondary to chronic ulcerative colitis with severe dysplasia. He was admitted a day prior to assist with bowel prep. He underwent
surgery on 07/13/[address] Angelito Sharma. He was tolerated the procedure well and was brought back to the medical surgical floor. There was an NG tube in his stomach and a 19 Lucio drain in his pelvis. Drain was notably removed prior to
discharge. The NG tube was maintained until he regained bowel function on postop day 2. Lovenox was started for DVT prophylaxis. Wound RN was consulted for stoma teaching. The patient diet was slowly advanced from a clear liquid diet to a
regular diet. He did retain urine and he was straight cathed several times before Ramirez was placed on postop day 6 it was determined the patient can be discharged to rehab. He was discharged with a Ramirez in place and to follow-up with urology.
Follow-up with Dr. Sharma in 2 weeks from discharge.
Discharge Plan
-
Patient Disposition: Fpc/SNF
Discharge Diagnosis/Procedures: Robotic proctocolectomy with permanent ileostomy
Diet: Regular
Activity: No strenuous activity
Additional Activity: No lifting over 10lbs (gallon of milk)
Driving Restrictions: No driving for 1 week
Bathing Restrictions: OK to Shower
Wound Care: Allow glue to naturally fall off. Do not pick at incisions.
Cover former drain site with gauze and tape. Change daily and as needed. Okay to leave open to air when sealed.
Activity Restrictions/Additional Instructions:
Ileostomy supplies: Sudhakar wafer # [id number], Phylicia seal and Sudhakar pouch # [id number], change 2 times a week and as needed for leakage. If leakage becomes a problem, try [place] cut to fit soft convex wafer # [id number] instead.
Call supply [facility] (list in folder provided) for monthly Ostomy supplies after discharge (ask VN to order supplies while on service).
Follow up with surgeon.
Call [facility] RN nurse for ostomy pouching concerns or leakage problems [phone] or [phone] or [phone].
Instructions: How to Care for Your Ramirez Catheter, Male, Apixaban, Living with an ileostomy
Referrals:
Mckay Sharma MD [Active] - in two weeks
Atif Hernandez DO [Family Provider] -
Additional Discharge Medication Instructions: -Tylenol as needed for pain. Maximum dose of Tylenol is 4,000mg in 24 hours.
-You have been started on Eliquis for three weeks due to a history of inflammatory bowel disease. This is to prevent blood clots from occurring. After three weeks, you may stop. Please see printed instructions regarding Eliquis
-You will need chemistry lab work once a week for 4 weeks. The next set of labs is next July 25. Since this is weekend, you may get it on July 26. Lab work is due every Thursday. A prescription has been sent to
[place] [facility]. This will be sent to Dr. Sharma so he can follow your blood work as you have a new ileostomy.
-Please monitor your ileostomy output daily. Please call [facility] if it is 1.5 L for more than 24 hours. This is to prevent you from becoming dehydrated.
-You must follow up with a urologist in 1-2 weeks to manage the ramirez. If you do not have one, please call [facility]: .
Prescriptions:
New
Eliquis 2.5 mg tablet
2.5 mg PO BID 21 Days Qty: 42 0RF
tamsulosin 0.4 mg Capsule
0.8 mg PO DAILY 30 Days Qty: 60 0RF
Continued
rosuvastatin 5 MG tablet
5 mg PO DAILY
cetirizine [Zyrtec] 10 mg Tablet
10 mg PO DAILY
simethicone 250 mg Capsule
250 mg PO TIDPRN PRN (Reason: gas pains)
therapeutic multivitamin Tablet
1 tab PO DAILY
irbesartan 150 mg Tablet
75 mg PO DAILY
Visbiome 112.5 billion cell Capsule
1 cap PO DAILY
cholecalciferol (vitamin D3) [Vitamin D3] 25 mcg (1,000 unit) Tablet,Chewable
25 mcg PO DAILY
cyanocobalamin (vitamin B-12) 1,500 mcg Tablet,Chewable
1,000 mcg PO DAILY
Discontinued
ferrous sulfate [iron] 325 mg (65 mg iron) Tablet
325 mg PO DAILY
Discharge Orders:
Discharge Patient (As Directed); Ordered 07/19/24
Ordered By: Anna Bryant
Discharge Date and Time
Discharge Date/Time: 07/19/24 15:33
Print Language: MACEDONIAN
== END 2024-07-19 15:33 | DRG 330 ==
LOC: 2 SOUTH 14:06
PROVIDERS: Physician Assistant; Registered Nurse; ADMITTING PHYSICIAN Surgery; FAMILY PHYSICIAN Family Medicine
PROC: 0DTE4ZZ Resection of Large Intestine, Percutaneous Endoscopic Approach (ICD-10-PCS; 2024-07-13)
PROC: 0DTP4ZZ Resection of Rectum, Percutaneous Endoscopic Approach (ICD-10-PCS; 2024-07-13)
PROC: 0D1B4Z4 Bypass Ileum to Cutaneous, Percutaneous Endoscopic Approach (ICD-10-PCS; 2024-07-13)
DX: K51.90 Ulcerative colitis, unspecified, without complications (principal); D62 Acute posthemorrhagic anemia; R33.9 Retention of urine, unspecified; D72.829 Elevated white blood cell count, unspecified; E78.5 Hyperlipidemia, unspecified; M19.90 Unspecified osteoarthritis, unspecified site; Z86.0101 Personal history of adenomatous and serrated colon polyps; Z87.891 Personal history of nicotine dependence
CPT/HCPCS: 88307; 36415; 80048; 80053; 81003; 81015; 82378; 83036; 83735; 84702; 85025; 85027; 85610; 85730; 86850; 86900; 86901; 87086; 93005; 97116; 97163; 97166; J1335

== ENCOUNTER 2024-08-04 23:43 | Inpatient (IN) | payer MEDICARE, BC, SELFPAY ==
[2024-08-04] VITALS (23 sets, daily range): BP systolic 68–115; BP diastolic 45–62; BMI 29.5
[2024-08-04 21:31] LABS: Hemoglobin 13.6 g/dL (13.0-18.0); Mean Corp Hgb Conc. 34.9 g/dL (33.0-37.0); Mean Corpuscular Hgb 30.4 pg (27.0-31.0); Mean Corpuscular Volume 87.1 fL (80.0-94.0); Mean Platelet Volume 9.6 fL (7.4-10.4); Platelet Count 304 10^3/uL (130-400); Red Blood Cell Count 4.48 10^6/uL (4.70-6.10); Red Cell Dist. Width 12.7 % (11.5-14.5); White Blood Cell Count 25.4 10^3/uL (4.8-10.8)
[2024-08-04 21:39] LABS: Lactic Acid 2.9 mmol/L (0.7-2.0)
[2024-08-04] MEDS: NSS 3000 ML IV (21:46)
[2024-08-04] MEDS: ZOSYN 100 IV (21:47)
[2024-08-04 21:49] LABS: ALT (SGPT) 19 U/L (0-50); AST (SGOT) 21 U/L (17-59); Albumin 3.7 g/dl (3.5-5.0); Alkaline Phosphatase 86 U/L (38-126); Blood Urea Nitrogen 17 mg/dl (9-20); Calcium 9.1 mg/dl (8.4-10.2); Carbon Dioxide 20 mmol/L (22-30); Chloride 109 mmol/L (98-107); Estimated Creatinine Clearance 54 ml/min; Glucose 121 mg/dl (70-99); Potassium 3.8 mmol/L (3.5-5.1); Sodium 138 mmol/L (135-145); Total Bilirubin 0.6 mg/dl (0.2-1.3); Total Protein 6.7 g/dl (6.3-8.2); eGFR 57.29
[2024-08-04 21:51] LABS: % Basophils 0.4 % (0-2); % Eosinophils 0.1 % (0-6); % Immature Granulocytes 0.6 % (0-0.5); % Lymphocytes 1.9 % (20.5-51.1); % Monocytes 11.2 % (1.7-9.3); % Neutrophils 85.8 % (42.2-75.2); Absolute Basophils 0.1 10^3/uL (0-0.2); Absolute Immature Granulocytes 0.1 10^3/uL (0-0.05); Absolute Lymphocytes 0.5 10^3/uL (1.2-3.4); Absolute Monocytes 2.8 10^3/uL (0.1-0.6); Absolute Neutrophils 21.8 10^3/uL (1.4-6.5); Nucleated Red Blood Cells % 0 % (-)
[2024-08-04 21:53] LABS: COVID-19 Antigen Negative (Negative)
--- NOTE | 2024-08-04 22:00 | ED.GENMED ---
History of Present Illness
General
Chief Complaint: Fever
Source: patient
Exam Limitations: none
Time Seen by Provider: 08/04/24 20:51
History of Present Illness
History of Present Illness:
74-year-old male recent robotic Coloproctectomy. Presents with sudden onset of fever chills this afternoon. No respiratory symptoms. Recent Nance catheter removal. No abdominal pain. Ostomy is functioning well.
Past History
Past History
ED Past Medical History: HTN, Hypercholesterolemia and Other (Ulcerative colitis, osteoarthritis, kidney stones)
ED Past Surgical History: Bowel resection (Ileal resection), Orthopedic and Other (Hernia repair. Robotic proctocolectomy)
Social History
Tobacco: Former smoker
Alcohol: None
Drug: None
Personal:
Living: with family
Employment: Other
Family History
Family History: Other; Negative Diabetes, Hypertension or CAD
Phy Exam
Physical Exam
Physical Exam:
GENERAL: Alert and oriented. No obvious distress however hypotensive and tachycardic
EYE: Orbits normal.
NECK: Supple, no significant adenopathy.
ENT: Pharynx without erythema
CARDIAC: Tachycardic and regular normal
LUNGS: Clear breath sounds,normal
ABDOMEN: Soft, without focal tenderness or distention. Ostomy functioning well
NEUROLOGICAL: Alert and oriented , grossly non-focal
SKIN: Warm and dry, no rash or lesion, no discoloration, skin intact.
MUSCULOSKELETAL: No edema,no deformity.Good color
PSYCH: Normal and appropriate interaction.
Sepsis
Sepsis Screening
Sepsis Assessment: Septic Shock
Sepsis Screening: Lactate >2mmol/L, Hypotension, Worsening O2 Saturation and Vasopressor support required
Sepsis Screen
Sepsis Screen: Septic Shock
Date: 08/04/24
Time: 23:16
Course
Orders/Labs/Results
Orders:
Orders
08/04/24 21:04
Cardiac Monitoring- Treatment ONCE
IV Insert/Care/Rem.- Treatment PRN
Urinalysis Reflex To Culture Urgent
Date Specimen was Collected: 08/04/24
Time Specimen was Collected: 23:05
O2 Therapy [RESP] Urgent
Titrate/Wean O2 to maintain O2 sat greater than (%): 94
Pulse Ox/cont/shift [RESP] Urgent
Quantity: 1
08/04/24 21:05
Electrocardiogram (*1) Urgent
Reason for Study: Other
Other Reason for Exam: sepsis
EKG- Treatment ONCE
08/04/24 21:06
CR Chest Single View Urgent
Reason For Exam: Fever/borderline hypoxia
08/04/24 21:07
CT Abd/Pel (IV only)-DH only Urgent
Comment:
Reason For Exam: Recent colectomy/sepsis/fever
08/04/24 21:16
Complete Blood Count/With Diff Urgent
Comprehensive Metabolic Panel Urgent
Lactic Acid Q4H
Comment: CANCEL 2nd LACTIC ACID IF 1st LACTIC ACID IS LESS THAN 2
Blood Culture Q30M
ASHOK Source: Blood/Venous
Specimen Description:
08/04/24 21:24
COVID-19 Antigen Urgent
Source: Nasal Swab
Blood Culture Q30M
ASHOK Source: Blood/Venous
Specimen Description:
Influenza A+B Rapid Molecular Urgent
ASHOK Source: Nasal Swab
Specimen Description:
0.9% Sodium Chloride 1000 ml [Nss] 3,000 ml IV NOW STA
Piperacillin/Tazo 4.5 Gram [Zosyn] 4.5 gram in 100 ml IV NOW
Vancomycin [Vancocin] 2,000 mg 0.9% Sodium Chloride 500 ml [Nss] 500 ml IV NOW
08/04/24 21:45
Vancomycin [Vancocin] 2,000 mg 0.9% Sodium Chloride 500 ml [Nss] 500 ml IV NOW
08/04/24 21:47
Piperacillin/Tazo 3.375 Gram [Zosyn] 3.375 gram in 50 ml .ROUTE .STK-MED
08/04/24 22:00
Flush (0.9% Sodium Chloride) [Flush (Nss)] See Dose Instructions IV PER PROTOCOL
08/04/24 22:36
NORepinephrine 4 MG/250 ML [Levophed] 4 mg in 250 ml IV NOW
Initial dose in mcg/min, then titrate:: 2
Titrate to keep:: MAP > 65 mmHg
Titrate by mcg/min:: 1-2 mcg/min
Frequency of titrations (minutes):: 5
Maximum dose in ICU in mcg/min:: 30
Maximum dose in IMU in mcg/min:: 8
Maximum dose in IVU in mcg/min:: 4
Begin to taper infusion when:: Remained at goal for 4hrs
Taper by mcg/min:: 1-2 mcg/min
Frequency of taper (minutes) if patient maintains goal:: 30
Taper to off?: Yes
If infusion off & no longer maintaining goal:: Contact Provider
08/05/24 01:15
Lactic Acid Q4H
Comment: CANCEL 2nd LACTIC ACID IF 1st LACTIC ACID IS LESS THAN 2
Abnormal Lab Results
08/04/24
21:16
WBC 25.4 H 10^3/uL
(4.8-10.8)
RBC 4.48 L 10^6/uL
(4.70-6.10)
Abs Immat Gran (auto) 0.1 H 10^3/uL
(0-0.05)
Absolute Neuts (auto) 21.8 H 10^3/uL
(1.4-6.5)
Absolute Lymphs (auto) 0.5 L 10^3/uL
(1.2-3.4)
Absolute Monos (auto) 2.8 H 10^3/uL
(0.1-0.6)
Immature Gran % 0.6 H %
(0-0.5)
Neutrophils % 85.8 H %
(42.2-75.2)
Lymphocytes % 1.9 L %
(20.5-51.1)
Monocytes % 11.2 H %
(1.7-9.3)
Chloride 109 H mmol/L
(98-107)
Carbon Dioxide 20 L mmol/L
(22-30)
Glucose 121 H mg/dl
(70-99)
Lactic Acid 2.9 H mmol/L
(0.7-2.0)
08/04/24 21:16
08/04/24 21:16
Vital Signs
Initial and Last Documented VS:
Initial Vital Signs
Pulse Ox
91
08/04/24 20:47
Last Documented Vital Signs
Temp Pulse Resp BP Pulse Ox
103.1 F H 108 21 74/49 96
08/04/24 21:00 08/04/24 23:00 08/04/24 23:00 08/04/24 23:00 08/04/24 23:00
MDM/Problems Addressed
Differential Diagnosis Includes:
Clinically septic although appears well. Likely source would be urine. Abdomen is nontender. CT scan is stable. Lungs are clear. Chest x-ray is stable. No other clinical source. Sepsis fluids, pressors were started. Antibiotics. Referred to
hospitalist. Colorectal surgery also notified
*Critical Care Note
Total Time (30-74mins, 75-104mins- exclusive of procedures): 45
Data Reviewed
Review of Other/Old Records Reveals: Labs, Records, Radiology Studies, Operative Reports, Testing and Discharge Summary
Update Note
Update Note:
Patient awake alert. Heart rate improved however blood pressure remains low. Going to CT now. Granddaughter was left a message.
2242... Blood pressure 67. Pressure started. Patient remains fully awake and alert. Hospitalist notified. I did contact colorectal although I do not think this is an acute surgical issue. Suspect a urinary source. Abdomen is benign no acute
findings on CT scan. Chest is unremarkable and no respiratory symptoms.
2305... BP 100/70. Patient remains fully alert. Hospitalist in room.
ED Attending Note
-
Portions of this chart may have been created with voice recognition software.� Occasional wrong word or��sound alike� substitutions may have occurred due to the inherent limitations of voice recognition software.
Discharge Plan
Departure
Patient Disposition: Admit
Date of Disposition: 08/04/24
Time of Disposition: 22:42
Presentation/result/management discussed w/ accepting MD/DO: Hospitalist
Discharge Problem:
Septic shock, Recent proctocolectomy
Prescriptions:
No Action
rosuvastatin 5 MG tablet
5 mg PO DAILY
cetirizine [Zyrtec] 10 mg Tablet
10 mg PO DAILY
simethicone 250 mg Capsule
250 mg PO TIDPRN PRN (Reason: gas pains)
therapeutic multivitamin Tablet
1 tab PO DAILY
irbesartan 150 mg Tablet
75 mg PO DAILY
Visbiome 112.5 billion cell Capsule
1 cap PO DAILY
cholecalciferol (vitamin D3) [Vitamin D3] 25 mcg (1,000 unit) Tablet,Chewable
25 mcg PO DAILY
cyanocobalamin (vitamin B-12) 1,500 mcg Tablet,Chewable
1,000 mcg PO DAILY
Eliquis 2.5 mg tablet
2.5 mg PO BID 21 Days Qty: 42 0RF
tamsulosin 0.4 mg Capsule
0.8 mg PO DAILY 30 Days Qty: 60 0RF
Referrals:
Atif Hernandez DO [Family Provider, Family Practice]
Interventions
Interventions:
*Risk Screen - Suicide Last Done: 08/04/24 21:08
*General Assessment Last Done: 08/04/24 21:08
*Neglect/Abuse Screening Last Done: 08/04/24 21:08
ED- Neurological Assessment Last Done: 08/04/24 21:43
ED-Skin Assessment Last Done: 08/04/24 22:50
Discharge Date and Time
Print Language: PANAMANIAN
[2024-08-04] MEDS: VANCOCIN 540 MG IV (22:28)
[2024-08-04] MEDS: LEVOPHED 250 IV (22:43)
--- NOTE | 2024-08-04 23:13 | HPS.HSE ---
Family Physician
-
Family Physician: Atif Hernandez
Chief Complaint
-
Fever
History of Present Illness
This is a 74-year-old male who was admitted from assisted for sepsis of likely urinary source.
Briefly, patient has past past medical history significant for ulcerative disease with pancolitis status post recent surgery with colectomy and end ileostomy for which she was discharged and completed a course of rehab. He has a planned discharge
from rehab today.'s recent hospital course complicated by urinary retention status post indwelling catheter placement. The indwelling catheter was left for about 10 days and he had a voiding trial yesterday evening. The voiding trial was
successful but patient reported that he had a follow-up with urology this afternoon and after urology he started having chills and chest pain and was found to have a fever.
Patient reports mild urinary discomfort with urination. He denies abdominal pain. He denies any changes in output from ileostomy. He denies any nausea or vomiting. He denies any cough. He denies any shortness of breath.
On transfer to the emergency department the patient was found to be hypotensive and febrile to 103.5. Blood pressures remained hypotensive and currently at 91/48 on Levophed. Start redness around 110. He is satting 94% on 2 L. Chest x-ray shows
no acute infiltrates. CT of the abdomen and pelvis without any abnormal fluid collection, no small bowel obstruction or free here, diffuse wall thickening of the urinary bladder as a result of bladder outlet obstruction, and possible cystitis.
White count was 24, hemoglobin and platelets were normal. Electrolytes were normal. BUN/creatinine were stable at 17 and 1.3.
Medical History
Past Medical History
Past Medical History: Reports Other
Additional Past Medical History:
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 C. difficile
Past Surgical History: Reports Other
Additional Past Surgical History:
Right ankle, bilateral knee meniscus repair, ankle debridement, ACL repair, cataract surgery, laparoscopic right colectomy in 2014, left knee replacement
Social History
Tobacco: Former Smoker (13-lvwl-jyvr history quit in 1989)
Drug: None
Family History
Family History: Not pertinent
Allergies / Home Medications
Allergies reflects when Allergies were last updated in [employer].
Home Medications with original date entered in [employer]
Allergy/Medication List:
Allergies: Remicade, pollen
Medications:
B12 1 pill daily
Claritin 10 mg p.o. daily
Irbesartan 150 mg p.o. daily
Iron supplement 325 mg p.o. daily
Mesalamine 1.2 g tablet delayed release 2 tabs with a meal
Multivitamin 1 tab daily
Probiotic 250 mg capsule once daily
Simethicone as needed
Skyrizi infusion
Vitamin D3
Review of Systems
-
Constitutional: Reports Fever and Chills
EENT: Reports No Symptoms
Respiratory: Reports No Symptoms
Cardiac: Reports No Symptoms
Abdomen/GI: Reports No Symptoms
: Reports No Symptoms
Musculoskeletal: Reports No Symptoms
Skin: Reports No Symptoms
Neurological: Reports No Symptoms
Endocrine: Reports No Symptoms
Hematologic/Lymphatic: Reports No Symptoms
Psych: Reports No Symptoms
Physical Exam
Vital Signs
Vital Signs
Temp Pulse Resp BP Pulse Ox
103.1 F H 108 21 74/49 96
08/04/24 21:00 08/04/24 23:00 08/04/24 23:00 08/04/24 23:00 08/04/24 23:00
Physical Exam
General: Well Developed, Well Nourished and No Apparent Distress
HEENT: NormoCephalic, Anicteric, Moist mucous membranes and Atraumatic
Respiratory: Clear
Cardiac: S1/S2 and Tachycardia
GI: Soft, Non Tender, Non Distended, Normal Bowel Sounds and Ostomy
Rectal: Deferred by Provider
Genito-urinary: Turbid Urine and No costovertebral tender
Musculoskeletal: No Clubbing, No Cyanosis and No Edema
Skin: Warm and Dry
Neuro: AO x 3 and Nonfocal/grossly intact
Hematologic/Lymphatic: No Lymphadenopathy
Psych: Calm
Laboratory Results
-
08/04/24 21:16
08/04/24 21:16
Laboratory Results
Lactic Acid 2.9 mmol/L (0.7-2.0) H 08/04/24 21:16
Total Bilirubin 0.6 mg/dl (0.2-1.3) 08/04/24 21:16
AST 21 U/L (17-59) 08/04/24 21:16
ALT 19 U/L (0-50) 08/04/24 21:16
Alkaline Phosphatase 86 U/L (38-126) 08/04/24 21:16
Data Reviewed
-
Diagnostic Radiology: Image Personally Visualized and interpreted and Report Reviewed by me
CT Scan: Report Reviewed by me
Lab Data: Labs Reviewed by me
Old Records: Reviewed
Impression/Plan
-
IMPRESSION:
74-year-old with sepsis and septic shock of likely urinary source. He has dysuria, recent instrumentation with indwelling urinary catheter for 10 days status post recent removal, fever to 103, tachycardia, hypotension requiring pressors. CT of the
abdomen is benign. Abdominal exam is benign. Report of CT sent to colorectal and no indication for an acute procedure at this time.
PLAN:
Sepsis -suspect urosepsis
- Admit to ICU
- Urinalysis is positive for nitrites, leukocyte esterase and likely source, urine cultures pending
- Blood culture sent
- Will continue IV Zosyn for now
- MRSA swab, hold vancomycin as no respiratory symptom
- 30 mL/kg crystalloid given
- Pressors to maintain MAP greater than 65
- Continue IV fluids of LR at 125 mL/h
- Will return to his regular diet as tolerated
- [employer] consultation
Urinary retention
- Bladder scan protocol for now
- Continue tamsulosin
Hypertension
- Holding irbesartan
DVT prophylaxis -heparin subcu
CODE STATUS�full code, patient does not want prolonged intubation
[2024-08-04 23:14] LABS: Urine Albumin 3+ (Neg - Trace); Urine Bilirubin Negative (Negative); Urine Character Slightly Cloudy (Clear); Urine Color Yellow; Urine Glucose Negative (Negative); Urine Ketone Negative (Negative); Urine Leukocyte 3+ (Negative); Urine Nitrite Positive (Negative); Urine Occult Blood 4+ (Negative); Urine Urobilinogen Negative (Neg - 1+)
[2024-08-04 23:20] LABS: Urine Squamous Cell 0-2 /LPF (Few)
[2024-08-04 23:21] LABS: Urine Bacteria Moderate (Negative); Urine White Cell >100 /HPF (0-5)
[2024-08-05] VITALS (49 sets, daily range): BP systolic 88–140; BP diastolic 46–76; BMI 29.1
--- NOTE | 2024-08-05 01:00 | PTCARENOTE ---
rec`d pt at 0100 from ED, AAOx3. pt has hearing aids and glasses. on levo gtt. + pulses. ST on monitor. afebrile. 3L POX 98%. ileostomy in place draining green/dark brown. pale toes. frequent urgency with urinating in urinal. 5 lap sites. LL lap
site covered with silicone boarder foam for protection from the ileostomy. PIVS flushed and patent. call tan in reach. safe environment maintained.
[2024-08-05 01:04] LABS: Glucose - Point of Care 121 mg/dl (70-99)
[2024-08-05] MEDS: HEPARIN 5000 UNITS SC ×3 (01:08→15:35)
[2024-08-05] MEDS: LR 1000 IV ×2 (01:09→18:11)
[2024-08-05] MEDS: LEVOPHED 250 IV ×2 (03:18→07:41)
[2024-08-05] MEDS: ZOSYN 50 IV ×4 (04:49→22:08)
[2024-08-05 04:57] LABS: Hematocrit 37.9 % (39.0-52.0); Hemoglobin 13.1 g/dL (13.0-18.0); Mean Corp Hgb Conc. 34.6 g/dL (33.0-37.0); Mean Corpuscular Hgb 30.3 pg (27.0-31.0); Mean Corpuscular Volume 87.7 fL (80.0-94.0); Mean Platelet Volume 9.5 fL (7.4-10.4); Platelet Count 307 10^3/uL (130-400); Red Blood Cell Count 4.32 10^6/uL (4.70-6.10); White Blood Cell Count 36.9 10^3/uL (4.8-10.8)
[2024-08-05 05:04] LABS: Lactic Acid 2.2 mmol/L (0.7-2.0)
[2024-08-05 05:07] LABS: INR 1.16; PT 15.3 Sec (11.4-14.6)
[2024-08-05 05:08] LABS: APTT 40.5 Sec (23.4-35.0)
[2024-08-05 05:23] LABS: ALT (SGPT) 18 U/L (0-50); AST (SGOT) 19 U/L (17-59); Albumin 3.2 g/dl (3.5-5.0); Alkaline Phosphatase 80 U/L (38-126); Blood Urea Nitrogen 16 mg/dl (9-20); Calcium 8.4 mg/dl (8.4-10.2); Carbon Dioxide 20 mmol/L (22-30); Chloride 113 mmol/L (98-107); Estimated Creatinine Clearance 54 ml/min; Glucose 116 mg/dl (70-99); Potassium 4.3 mmol/L (3.5-5.1); Sodium 141 mmol/L (135-145); Total Bilirubin 0.8 mg/dl (0.2-1.3); Total Protein 6.1 g/dl (6.3-8.2); eGFR 57.29
--- NOTE | 2024-08-05 05:33 | PTCARENOTE ---
no changes in pt assessment. pt resting in bed.
[2024-08-05 05:56] LABS: Cortisol, Random 14.4 ug/dl
--- NOTE | 2024-08-05 06:54 | CON.INTV ---
Addendum entered and electronically signed by Becky Price MD 08/05/24 19:05:
Patient has been off Norepinephrine for many hours. Hemodynamically stable, sitting in chair.
- Short term addition of Midodrine
- Patient stable for transfer out of ICU
- Bottle Washing Machine Operator service will sign off, please call as needed.
Original Note:
Consultation
Consultation Request
Date/Time Consultation Requested: 08/04/2024
Date/Time Consultation Performed: 08/05/2024
Requesting Provider: Aaron Cotton
Performing Provider: Becky Price
Reason for Consultation: Shock
Medical History
-
Chief Complaint: Fever
History of Present Illness:
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 Patient did require indwelling urinary catheterization recently. It was
recently removed and patient developed chills as well as fever. Also reported some dysuria without any abdominal pain or change in output from ileostomy. Patient was transferred to the emergency room and was noted to be febrile up to 203.5 as well
as hypotensive. Patient received 30 mL/kg fluid bolus and stayed hypotensive at which point he was started on Levophed and was admitted to ICU. Bottle Washing Machine Operator consult was requested for further input.
Past Medical History: Reports Other
Additional Past Medical History:
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 C. difficile
Past Surgical History: Reports Other
Additional Past Surgical History:
Right ankle, bilateral knee meniscus repair, ankle debridement, ACL repair, cataract surgery, laparoscopic right colectomy in 2013, left knee replacement
Social History
Tobacco: Former Smoker ([id number] history quit in 1989)
Drug: None
Family History
Family History: Not pertinent
Allergies / Home Medications
Allergies / Home Medications
Allergies
Allergy/AdvReac Type Severity Reaction Status Date / Time
animal dander Allergy CONGESTION Verified 08/04/24 20:41
birch Allergy CONGESTION Verified 08/04/24 20:41
house dust Allergy congestion Verified 08/04/24 20:41
infliximab (From Remicade) Allergy Flushing Verified 08/04/24 20:41
pollen extracts Allergy seasonal Verified 08/04/24 20:41
allergies
Home Medications
�Medication �Instructions �Recorded �Confirmed �Last Taken �Type
rosuvastatin 5 mg tablet 5 mg PO DAILY High cholesterol 08/29/19 07/12/24 12/14/20 04:30 History
cetirizine 10 mg tablet (Zyrtec) 10 mg PO DAILY Allergies 07/06/24 07/12/24 Unknown History
simethicone 250 mg capsule 250 mg PO TIDPRN PRN gas pains 07/06/24 07/12/24 Unknown History
Lactobac no.2-Bifidobac no.1-S. 1 cap PO DAILY Supplement 07/12/24 07/12/24 Unknown History
thermo 112.5 billion cell capsule
(Visbiome)
cholecalciferol (vitamin D3) 25 25 mcg PO DAILY Supplement 07/12/24 07/12/24 Unknown History
mcg (1,000 unit) chewable tablet
(Vitamin D3)
cyanocobalamin (vitamin B-12) 1,000 mcg PO DAILY Supplement 07/12/24 07/12/24 Unknown History
1,500 mcg chewable tablet
irbesartan 150 mg tablet 75 mg PO DAILY Blood Pressure 07/12/24 07/12/24 Unknown History
therapeutic multivitamin 1 tab PO DAILY Supplement 07/12/24 07/12/24 Unknown History
apixaban 2.5 mg tablet (Eliquis) 2.5 mg PO BID 3 weeks #42 tabs 07/18/24 Unknown Rx
tamsulosin 0.4 mg capsule 0.8 mg (2 x 0.4 mg) PO DAILY 30 07/18/24 Unknown Rx
days #60 caps
Review of Systems
-
: Dysuria and Frequency
Hematologic/Lymphatic: Other (All 14 systems reviewed and negative except as stated above in the history of present illness.)
Vitals / Labs / Diagnostic Testing
Vital Signs
Temp Pulse Resp BP Pulse Ox
99.3 F 94 24 124/56 97
08/05/24 04:49 08/05/24 04:45 08/05/24 04:45 08/05/24 04:00 08/05/24 04:45
Lab Data
08/05/24 04:41
08/05/24 04:41
Laboratory Results
08/05/24
04:41
PT 15.3 H
INR 1.16
APTT 40.5 H
Microbiology
08/04/24 21:24 Nasal Swab Influenza Types A & B (MARGO) - Final
Negative for Influenza A & B, NAAT
Negative results must be combined with clinical observations
and patient history.
Nucleic Acid Amplification test (NAAT)performed on the
[employer] NOW platform.
Diagnostic Testing:
Physical Exam
-
HEENT: Normocephalic
Cardiovascular: S1/S2
Respiratory: Clear and Non-Labored Respirations
GI: Soft and Non Distended
Neurology: Awake and Alert
Skin: Warm and Dry
General: Comfortable
Assessment
-
#1. Shock, suspect septic shock related to underlying UTI
- WBC count at 36.9 thousand. ABG 7.46, 32, 104. Lactate was 2.9, follow-up at 2.2, improving. Creatinine around 1.3, baseline 1-1.2.
- Continue IV hydration with Ringer lactate, s/p 30 mL/kg crystalloid bolus
- Continue Levophed to keep MAP above 65
- IV Zosyn, pending culture sensitivities
#2. History of urinary retention
- Continue Flomax
- Nance catheter was recently removed
#3. Mild ASHLEY.
- Hold irbesartan, continue IV fluids
- Serial labs
#4. History of ulcerative pancolitis with severe dysplasia, status post procto-colectomy and end ileostomy
- Clinically stable, CT abdomen pelvis without any significant abnormality
DVT prophylaxis with subcu heparin
Critical Care time 58 mins -- The patient is admitted for acute critical illness for the treatment of vital organ failure and/or prevention of further life-threatening conditions. Total care includes time spent in review of history, physical exam,
medications, hemodynamic/ventilator parameters, laboratory data, imaging and discussion with house staff, pharmacy, respiratory therapy, entry level accounting clerk, and nursing.
Data:
CXR 07/2024: Mild elevation of right hemidiaphragm.
Minor bibasilar subsegmental atelectasis and/or scarring.
CT Abd/pelvis 07/2024: Right lower quadrant unremarkable ileostomy with apparent history of recent total versus subtotal colectomy..
Postsurgical changes in the presacral soft tissues with some stranding without discrete accompanying well-formed abnormal focal fluid collection.
No small bowel obstruction or free air.
Few bubbles of air scattered in the right groin/inguinal region without gross accompanying abnormal focal fluid collection.
Small portion of upper scrotum included on this study with some fluid density possibly representing a hydrocele.
At least relative diffuse thickening of the wall the urinary bladder as a result of bladder outlet obstruction with enlarged prostate noted. Other etiology such as cystitis cannot be excluded. Layering stone midline posterior urinary bladder.
ECHO 03/2022: Normal left ventricular chamber size. Normal left ventricular systolic
function. Normal regional wall motion. Mild concentric left ventricular
hypertrophy. Left ventricular ejection fraction is 60-65%. Normal diastolic
function.
Mild tricuspid regurgitation. Estimated pulmonary artery pressure of 35-40
mmHg.
No prior study available for comparison.
[2024-08-05] MEDS: FLOMAX 0.8 MG PO (08:21)
[2024-08-05] MEDS: VISBIOME 1 CAP PO (08:21)
[2024-08-05] MEDS: CRESTOR 5 MG PO (08:21)
[2024-08-05] MEDS: ZYRTEC 10 MG PO (08:21)
[2024-08-05] MEDS: DESENEX/MITRAZOL/ZEASORB 1 APPLIC TOPICAL ×2 (08:22→20:35)
--- NOTE | 2024-08-05 08:52 | PTCARENOTE ---
Received pt @ change of shift. Pt. AAox3, denies pain. SR w 1st degree AVB and BBB on monitor. Spo2 99% on 4LNC, weaned to 2LNC and tolerating. Auscultated dim breath sounds throughout. +BS, abd soft/round/nt. RLQ ileostomy in place w brown/liq
stool. Bladder urg/freq; urine cloudy/yellow. Assisted w angela hygiene. Pt. able to turn self in bed and actively reposition. ABD lap sites approx w surg glue FINESSE; SBF in place below ileostomy c/d/i. Levo gtt infusing; tapering- see flow sheet;
LR @ 125mL/hr infusing- see MAR. Pt. instructed on how to report care concerns and call tan placed w in reach.
[2024-08-05 09:43] LABS: Lactic Acid 1.3 mmol/L (0.7-2.0)
--- NOTE | 2024-08-05 10:55 | CM ---
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 He was preparing for discharge and HH was set up with for after discharge. Prior to discharge he was admitted to [facility].
Initial assessment completed with patient who lives with his granddaughter in a 3 story plus basement home with 10 steps to enter, B/B on 1st floor. 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 RW in the home but does not use. Does have a HC-POA. No
service. No psychiatric hospitalizations. PCP is Dr. Atif Hernandez and Pharmacy is [facility] in [place]. Discharge POC: Anticipate HH with . Will send referral. If PT eval and recommendation is done, may change discharge plan. Patient does
not want to return to [facility].
--- NOTE | 2024-08-05 12:09 | W.PN.HOSP.TC ---
Today's Communication/Plan
-
Assessment / Plan
Assessment / Plan
General: No Apparent Distress, Comfortable and Conversant
HEENT: NormoCephalic, Moist mucous membranes, Atraumatic
Respiratory: Clear and Non Labored Respirations
Cardiac: S1/S2 and Regular Rhythm; No Rub or Gallop
GI: Soft, Non Tender, Non Distended, appropriate ileostomy output
Musculoskeletal: No Edema, no deformity
Skin: Warm and dry
: NO Nance
Neuro: Awake, Alert, Nonfocal/grossly intact
Psych: Calm and Intact Judgment/Insight
Mr. Burrell is a 74-year-old male with a medical history of ulcerative colitis (status post proctocolectomy with end ileostomy 07/13/2024), postop urinary retention, and hypertension who presented from rehab with dysuria, fever/chills, and
hypotension. He had been discharged to rehab with Nance in place after hospitalization for proctocolectomy with end ileostomy. He voided spontaneously after Nance removal but later developed dysuria and chills. In the ED he was found to be
febrile and hypotensive with a significant leukocytosis and a lactic acidosis. He was started on broad-spectrum antibiotics, IV fluids, and vasopressors. Imaging is benign. He has been admitted for further evaluation and management.
Septic shock secondary to UTI:
- Continue antibiotics with Zosyn
- Follow-up cultures and MRSA swab
- Continue vasopressors, titrate as able
- Holding home antihypertensive regimen
Urinary retention:
- Currently voiding spontaneously
- Continue tamsulosin
Ulcerative colitis:
- Status post recent proctocolectomy with end ileostomy 07/13/2024
- Monitor ileostomy output
- Was started on low-dose Eliquis after surgical discharge for DVT prophylaxis in the setting of IBD, will use subcu heparin while in the hospital
DVT prophylaxis: Subcu heparin
CODE STATUS: Full code
Total time spent on today's encounter was 40 minutes
Anticipated Discharge: > 48 hours
Subjective/Interval History
-
Date of Service: August 05, 2024
Patient was seen and examined at bedside this morning. Feeling much better after being started on antibiotics. Vasopressors being titrated down.
Objective Data
-
Labs:
Laboratory Results
08/05/24
04:41
WBC 36.9 H
Hgb 13.1
Hct 37.9 L
Plt Count 307
PT 15.3 H
INR 1.16
APTT 40.5 H
Sodium 141
Potassium 4.3
Chloride 113 H
Carbon Dioxide 20 L
BUN 16
Creatinine 1.3
Glucose 116 H
Calcium 8.4
Total Bilirubin 0.8
AST 19
ALT 18
Alkaline Phosphatase 80
Vital Signs:
Vital Signs
Temp Pulse Resp BP Pulse Ox
98.5 F 93 14 107/47 95
08/05/24 11:07 08/05/24 11:30 08/05/24 11:30 08/05/24 11:30 08/05/24 11:30
I&O
08/04/24 08/05/24 08/06/24
06:59 06:59 06:59
Intake Total 906.5 / 1087.8 1231.3 / 1231.3
Output Total 700 / 700 850 / 850
Balance 206.5 / 387.8 381.3 / 381.3
Review of Systems
-
History Source: Patient
All other systems: Reviewed and negative
Genitourinary: Reports Dysuria
Physical Exam
-
General: No Apparent Distress
--- NOTE | 2024-08-05 13:53 | PTCARENOTE ---
Levo gtt tapered to off- see flow sheet. Assessment remains unchanged from previous. Call britney w in reach.
[2024-08-05] MEDS: ProAmatine 5 MG PO ×2 (15:35→20:35)
[2024-08-05] MEDS: DESYREL 100 MG PO (22:09)
[2024-08-06] VITALS (10 sets, daily range): BP systolic 99–144; BP diastolic 51–82; BMI 29.2
[2024-08-06] MEDS: HEPARIN 5000 UNITS SC ×4 (00:14→23:07)
[2024-08-06] MEDS: LR 1000 IV ×3 (02:28→18:00)
[2024-08-06] MEDS: ZOSYN 50 IV ×4 (04:17→22:12)
--- NOTE | 2024-08-06 06:05 | PTCARENOTE ---
Pt Aox3, VSS, denies pain. NSR w/ bbb on monitor. CC #30 placed for over night. Ileostomy appliance changed. Pt offers no complaints.
[2024-08-06] MEDS: DESENEX/MITRAZOL/ZEASORB 1 APPLIC TOPICAL ×2 (09:00→20:00)
[2024-08-06] MEDS: ZYRTEC 10 MG PO (09:00)
[2024-08-06] MEDS: FLOMAX 0.8 MG PO (09:00)
[2024-08-06] MEDS: ProAmatine 5 MG PO ×2 (09:00→20:00)
[2024-08-06] MEDS: VISBIOME 1 CAP PO (09:00)
[2024-08-06] MEDS: CRESTOR 5 MG PO (09:20)
--- NOTE | 2024-08-06 11:28 | PTCARENOTE ---
Report given to RN on 3W, pt to be transferred now to 335 private room (+MRSA). PT tolerated OOB in chair for 2.5 hrs. All belongings packed and pt being brought over now to new room.
--- NOTE | 2024-08-06 13:43 | W.PN.HOSP.TC ---
Today's Communication/Plan
-
Assessment / Plan
Assessment / Plan
General: No Apparent Distress, Comfortable and Conversant
HEENT: NormoCephalic, Moist mucous membranes, Atraumatic
Respiratory: Clear and Non Labored Respirations
Cardiac: S1/S2 and Regular Rhythm; No Rub or Gallop
GI: Soft, Non Tender, Non Distended, appropriate ileostomy output of brown semisolid stool
Musculoskeletal: No Edema, no deformity
Skin: Warm and dry
: Condom catheter in place draining clear yellow urine
Neuro: Awake, Alert, Nonfocal/grossly intact
Psych: Calm and Intact Judgment/Insight
Mr. Burrell is a 74-year-old male with a medical history of ulcerative colitis (status post proctocolectomy with end ileostomy 07/13/2024), postop urinary retention, and hypertension who presented from rehab with dysuria, fever/chills, and
hypotension. He had been discharged to rehab with Nance in place after hospitalization for proctocolectomy with end ileostomy. He voided spontaneously after Nance removal but later developed dysuria and chills. In the ED he was found to be
febrile and hypotensive with a significant leukocytosis and a lactic acidosis. He was started on broad-spectrum antibiotics, IV fluids, and vasopressors. Imaging is benign. He has been admitted for further evaluation and management.
Septic shock secondary to UTI:
- Shock resolved, off vasopressors, blood pressure stable on scheduled midodrine, downgraded to telemetry
- Afebrile since fever at time of admission
- Continue antibiotics with Zosyn
- MRSA swab positive although doubt this is relevant to acute urinary tract infection, follow-up urine cultures
- Holding home antihypertensive regimen
Urinary retention:
- Currently voiding spontaneously
- Continue tamsulosin
Ulcerative colitis:
- Status post recent proctocolectomy with end ileostomy 07/13/2024
- Monitor ileostomy output which appears to be appropriate at this time
- Was started on low-dose Eliquis after surgical discharge for DVT prophylaxis in the setting of IBD, will use subcu heparin while in the hospital
DVT prophylaxis: Subcu heparin
CODE STATUS: Full code
Total time spent on today's encounter was 40 minutes
Anticipated Discharge: > 48 hours
Subjective/Interval History
-
Date of Service: August 06, 2024
Patient was seen and examined at bedside this morning. Feeling much better. Blood pressure stable off of vasopressors. Continuing antibiotic treatment with Zosyn.
Objective Data
-
Vital Signs:
Vital Signs
Temp Pulse Resp BP Pulse Ox
97.7 F 85 16 116/63 95
08/06/24 12:19 08/06/24 12:19 08/06/24 12:19 08/06/24 12:19 08/06/24 12:19
I&O
08/05/24 08/06/24 08/07/24
06:59 06:59 06:59
Intake Total 906.5 / 1087.8 3718.8 / 3843.8 1070 / 1070
Output Total 700 / 700 2525 / 2525 400 / 400
Balance 206.5 / 387.8 1193.8 / 1318.8 670 / 670
Review of Systems
-
History Source: Patient
All other systems: Reviewed and negative
Physical Exam
-
General: No Apparent Distress
[2024-08-06 14:07] LABS: Hematocrit 34.5 % (39.0-52.0); Hemoglobin 11.9 g/dL (13.0-18.0); Mean Corp Hgb Conc. 34.5 g/dL (33.0-37.0); Mean Corpuscular Hgb 30.8 pg (27.0-31.0); Mean Corpuscular Volume 89.4 fL (80.0-94.0); Mean Platelet Volume 9.4 fL (7.4-10.4); Platelet Count 230 10^3/uL (130-400); Red Blood Cell Count 3.86 10^6/uL (4.70-6.10); Red Cell Dist. Width 13.2 % (11.5-14.5)
[2024-08-06 14:36] LABS: % Basophils 0.5 % (0-2); % Eosinophils 16.8 % (0-6); % Immature Granulocytes 0.2 % (0-0.5); % Lymphocytes 6.2 % (20.5-51.1); % Monocytes 7.9 % (1.7-9.3); % Neutrophils 68.4 % (42.2-75.2); Absolute Basophils 0.1 10^3/uL (0-0.2); Absolute Lymphocytes 0.8 10^3/uL (1.2-3.4); Absolute Neutrophils 8.2 10^3/uL (1.4-6.5); Nucleated Red Blood Cells % 0 % (-)
[2024-08-06 14:44] LABS: Blood Urea Nitrogen 16 mg/dl (9-20); Calcium 8.9 mg/dl (8.4-10.2); Carbon Dioxide 25 mmol/L (22-30); Chloride 111 mmol/L (98-107); Estimated Creatinine Clearance 47 ml/min; Glucose 105 mg/dl (70-99); Potassium 4.4 mmol/L (3.5-5.1); Sodium 139 mmol/L (135-145); eGFR 48.25
[2024-08-06] MEDS: DESYREL 100 MG PO (22:13)
[2024-08-07] MEDS: LR 1000 IV (02:42)
[2024-08-07 03:00] VITALS: BP 135/79
[2024-08-07] MEDS: ZOSYN 50 IV ×4 (04:15→21:01)
[2024-08-07 07:12] VITALS: BP 131/78
[2024-08-07] MEDS: FLOMAX 0.8 MG PO (08:16)
[2024-08-07] MEDS: ZYRTEC 10 MG PO (08:16)
[2024-08-07] MEDS: VISBIOME 1 CAP PO (08:16)
[2024-08-07] MEDS: ProAmatine 5 MG PO (08:17)
[2024-08-07] MEDS: DESENEX/MITRAZOL/ZEASORB 1 APPLIC TOPICAL ×2 (08:17→21:11)
[2024-08-07] MEDS: CRESTOR 5 MG PO (08:17)
[2024-08-07] MEDS: HEPARIN 5000 UNITS SC (08:17)
[2024-08-07 11:06] VITALS: BP 119/66
--- NOTE | 2024-08-07 11:09 | W.PN.HOSP.TC ---
Today's Communication/Plan
-
Assessment / Plan
Assessment / Plan
General: No Apparent Distress, Comfortable and Conversant
HEENT: NormoCephalic, Moist mucous membranes, Atraumatic
Respiratory: Clear and Non Labored Respirations
Cardiac: S1/S2 and Regular Rhythm; No Rub or Gallop
GI: Soft, Non Tender, Non Distended, appropriate ileostomy output of brown semisolid stool
Musculoskeletal: No Edema, no deformity
Skin: Warm and dry
: Condom catheter in place draining clear yellow urine
Neuro: Awake, Alert, Nonfocal/grossly intact
Psych: Calm and Intact Judgment/Insight
Mr. Burrell is a 74-year-old male with a medical history of ulcerative colitis (status post proctocolectomy with end ileostomy 07/13/2024), postop urinary retention, and hypertension who presented from rehab with dysuria, fever/chills, and
hypotension. He had been discharged to rehab with Nance in place after hospitalization for proctocolectomy with end ileostomy. He voided spontaneously after Nance removal but later developed dysuria and chills. In the ED he was found to be
febrile and hypotensive with a significant leukocytosis and a lactic acidosis. He was started on broad-spectrum antibiotics, IV fluids, and vasopressors. Imaging is benign. He has been admitted for further evaluation and management.
Septic shock secondary to UTI:
- Shock resolved, off vasopressors, blood pressure stable on scheduled midodrine, downgraded to telemetry, discontinue IV fluids
- Continue antibiotics with Zosyn, follow-up urine cultures
- MRSA swab positive although doubt this is relevant to acute urinary tract infection
- Holding home antihypertensive regimen
- Significant clinical improvement, anticipate discharge in the next 24 to 48 hours, awaiting urine culture results
Urinary retention:
- Currently voiding spontaneously
- Continue tamsulosin
Ulcerative colitis:
- Status post recent proctocolectomy with end ileostomy 07/13/2024
- Monitor ileostomy output which appears to be appropriate at this time
- Was started on low-dose Eliquis after surgical discharge for DVT prophylaxis in the setting of IBD, will continue
DVT prophylaxis: Low-dose Eliquis
CODE STATUS: Full code
Total time spent on today's encounter was 40 minutes
Anticipated Discharge: 24 - 48 hours
Subjective/Interval History
-
Date of Service: August 07, 2024
Patient was seen and examined at bedside this morning. Comfortable, feels much better now than at time of admission. Continuing antibiotics with Zosyn while urine cultures are pending.
Objective Data
-
Labs:
Laboratory Results
08/07/24
13:45
WBC Pending
Hgb Pending
Hct Pending
Plt Count Pending
Sodium Pending
Potassium Pending
Chloride Pending
Carbon Dioxide Pending
BUN Pending
Creatinine Pending
Glucose Pending
Calcium Pending
Vital Signs:
Vital Signs
Temp Pulse Resp BP Pulse Ox
98.2 F 77 18 119/66 96
08/07/24 11:06 08/07/24 11:06 08/07/24 11:06 08/07/24 11:06 08/07/24 11:06
I&O
08/06/24 08/07/24 08/08/24
06:59 06:59 06:59
Intake Total 3718.8 / 3843.8 2545 / 2545
Output Total 2525 / 2525 1450 / 1450 187 / 187
Balance 1193.8 / 1318.8 1095 / 1095 -1875 / -1875
Review of Systems
-
History Source: Patient
All other systems: Reviewed and negative
Physical Exam
-
General: No Apparent Distress
[2024-08-07] MEDS: LR IV (11:14)
[2024-08-07 14:30] LABS: % Basophils 0.6 % (0-2); % Eosinophils 18.1 % (0-6); % Immature Granulocytes 0.1 % (0-0.5); % Neutrophils 60.2 % (42.2-75.2); Absolute Eosinophils 1.3 10^3/uL (0-0.7); Absolute Lymphocytes 0.8 10^3/uL (1.2-3.4); Absolute Monocytes 0.7 10^3/uL (0.1-0.6); Absolute Neutrophils 4.1 10^3/uL (1.4-6.5); Hematocrit 33.8 % (39.0-52.0); Hemoglobin 11.9 g/dL (13.0-18.0); Mean Corp Hgb Conc. 35.2 g/dL (33.0-37.0); Mean Corpuscular Hgb 29.8 pg (27.0-31.0); Mean Corpuscular Volume 84.7 fL (80.0-94.0); Mean Platelet Volume 9.9 fL (7.4-10.4); Nucleated Red Blood Cells % 0 % (-); Platelet Count 236 10^3/uL (130-400); Red Blood Cell Count 3.99 10^6/uL (4.70-6.10); Red Cell Dist. Width 12.8 % (11.5-14.5); White Blood Cell Count 6.9 10^3/uL (4.8-10.8)
[2024-08-07 15:00] VITALS: BP 137/64
[2024-08-07 15:00] LABS: Blood Urea Nitrogen 11 mg/dl (9-20); Calcium 9.2 mg/dl (8.4-10.2); Carbon Dioxide 26 mmol/L (22-30); Chloride 109 mmol/L (98-107); Estimated Creatinine Clearance 58 ml/min; Glucose 106 mg/dl (70-99); Potassium 4.2 mmol/L (3.5-5.1); Sodium 140 mmol/L (135-145); eGFR > 60.00
[2024-08-07 19:00] VITALS: BP 137/64
[2024-08-07] MEDS: ProAmatine PO (21:00)
[2024-08-07] MEDS: ELIQUIS 2.5 MG PO (21:10)
[2024-08-07 23:00] VITALS: BP 125/68
[2024-08-07] MEDS: DESYREL 100 MG PO (23:05)
[2024-08-08 03:00] VITALS: BP 138/69
[2024-08-08] MEDS: ZOSYN 50 IV ×2 (04:34→10:13)
--- NOTE | 2024-08-08 05:57 | W.PN.HOSP.TC ---
Today's Communication/Plan
-
IV abx switched to PO abx
probiotic
dc midodrine, monitor bp off
likely discharge tomorrow if remains stable/continues to improve
Assessment / Plan
Assessment / Plan
Physical exam
General: No Apparent Distress, Comfortable and Conversant
HEENT: NormoCephalic, Moist mucous membranes, Atraumatic
Respiratory: Clear and Non Labored Respirations
Cardiac: S1/S2 and Regular Rhythm; No Rub or Gallop
GI: Soft, Non Tender, Non Distended, appropriate ileostomy output of brown semisolid stool
Musculoskeletal: No Edema, no deformity
Skin: Warm and dry
Neuro: AOx3 conversant coherent
Psych: Calm and Intact Judgment/Insight
Mr. Burrell is a 74-year-old male with a medical history of ulcerative colitis (status post proctocolectomy with end ileostomy 07/13/2024), postop urinary retention, and hypertension who presented from rehab with dysuria, fever/chills, and
hypotension. He had been discharged to rehab with Nance in place after hospitalization for proctocolectomy with end ileostomy. He voided spontaneously after Nance removal but later developed dysuria and chills. In the ED he was found to be
febrile and hypotensive with a significant leukocytosis and a lactic acidosis. He was started on broad-spectrum antibiotics, IV fluids, and vasopressors. Imaging is benign. He has been admitted for further evaluation and management.
Septic shock secondary to UTI:
- Shock resolved, off vasopressors, blood pressure stable on scheduled midodrine, downgraded to telemetry, discontinued IV fluids
- MRSA swab positive although doubt this is relevant to acute urinary tract infection
- Urine cx noted no significant growth, contamination
- empiric zosyn transitioned to Augmentin with probiotic
- cont hold home antihypertensive and dc midodrine BP
- BP so far stable and consistently at goal without need for antihypertensive of midodrine
Urinary retention:
- Currently voiding spontaneously
- Continue tamsulosin
Ulcerative colitis:
- Status post recent proctocolectomy with end ileostomy 07/13/2024
- Monitor ileostomy output which appears to be appropriate at this time
- Was started on low-dose Eliquis after surgical discharge for DVT prophylaxis in the setting of IBD, will continue
DVT prophylaxis: Low-dose Eliquis
CODE STATUS: Full code
I spent a total of 40 minutes with the patient or on the floor. More than 50% of this time involved counseling and coordination of care.
Anticipated Discharge: Within 24 hours
Subjective/Interval History
-
Date of Service: August 08, 2024
seen and examined at bedside in no acute distress overall reports feeling well. Dysuria significantly improved near resolved. Denies pain.
Objective Data
-
Labs:
Laboratory Results
08/08/24
13:45
WBC Pending
Hgb Pending
Hct Pending
Plt Count Pending
Sodium Pending
Potassium Pending
Chloride Pending
Carbon Dioxide Pending
BUN Pending
Creatinine Pending
Glucose Pending
Calcium Pending
Vital Signs:
Vital Signs
Temp Pulse Resp BP Pulse Ox
97.4 F 72 18 138/69 96
08/08/24 03:00 08/08/24 03:00 08/08/24 03:00 08/08/24 03:00 08/08/24 03:00
I&O
08/06/24 08/07/24 08/08/24
06:59 06:59 06:59
Intake Total 3718.8 / 3843.8 2545 / 2545 1610 / 1610
Output Total 2525 / 2525 1450 / 1450 3675 / 3675
Balance 1193.8 / 1318.8 1095 / 1095 -2064 / -2064
[2024-08-08 06:00] VITALS: BMI 29.0
[2024-08-08 07:55] VITALS: BP 119/64
[2024-08-08] MEDS: ProAmatine 5 MG PO (08:12)
[2024-08-08] MEDS: FLOMAX 0.8 MG PO (08:12)
[2024-08-08] MEDS: DESENEX/MITRAZOL/ZEASORB 1 APPLIC TOPICAL ×2 (08:13→20:31)
[2024-08-08] MEDS: ZYRTEC 10 MG PO (08:13)
[2024-08-08] MEDS: ELIQUIS 2.5 MG PO ×2 (08:13→20:31)
[2024-08-08] MEDS: VISBIOME 1 CAP PO (08:13)
[2024-08-08] MEDS: CRESTOR 5 MG PO (08:13)
--- NOTE | 2024-08-08 11:10 | CM ---
Patient seen at bedside on . Patient stated that he does not want SNF and his plan is to return to home with [facility]. Patient stated that he has already talked to Abi, Liaison for [facility]. Patient has had [facility] and if needing IV
antibiotics would prefer not to use that company. CM will continue to follow for discharge planning needs.
Plan; home with [facility]; watch for any IV antibiotics
[2024-08-08 11:43] VITALS: BP 133/71
[2024-08-08 15:00] VITALS: BP 135/69
[2024-08-08 19:00] VITALS: BP 146/69
[2024-08-08] MEDS: AUGMENTIN 875 MG/125 MG 1 TABLET PO (20:31)
[2024-08-08] MEDS: FLORASTOR 250 MG PO (20:31)
[2024-08-08] MEDS: ProAmatine PO (20:35)
[2024-08-08 23:00] VITALS: BP 128/65
[2024-08-09 03:00] VITALS: BP 127/64
--- NOTE | 2024-08-09 06:32 | W.PN.HOSP.TC ---
Addendum entered and electronically signed by Anna Mcnally MD 08/10/24 05:33:
UTI likely related to prior Nance use
Original Note:
Today's Communication/Plan
-
discharge
Assessment / Plan
Assessment / Plan
Physical exam
General: No Apparent Distress, Comfortable and Conversant
HEENT: NormoCephalic, Moist mucous membranes, Atraumatic
Respiratory: Clear and Non Labored Respirations
Cardiac: S1/S2 and Regular Rhythm; No Rub or Gallop
GI: Soft, Non Tender, Non Distended, appropriate ileostomy output of brown semisolid stool
Musculoskeletal: No Edema, no deformity
Skin: Warm and dry
Neuro: AOx3 conversant coherent
Psych: Calm and Intact Judgment/Insight
Mr. Burrell is a 74-year-old male with a medical history of ulcerative colitis (status post proctocolectomy with end ileostomy 07/13/2024), postop urinary retention, and hypertension who presented from rehab with dysuria, fever/chills, and
hypotension. He had been discharged to rehab with Nance in place after hospitalization for proctocolectomy with end ileostomy. He voided spontaneously after Nance removal but later developed dysuria and chills. In the ED he was found to be
febrile and hypotensive with significant leukocytosis and lactic acidosis. He was started on broad-spectrum antibiotics, IV fluids, and vasopressors. Imaging was benign. He was admitted for further evaluation and management.
Septic shock secondary to UTI:
- Shock resolved, off vasopressors, blood pressure stable on scheduled midodrine, downgraded to telemetry, discontinued IV fluids, midodrine later discontinued as well, remains stable off
- MRSA screen pos
- Urine cx noted no significant growth, contamination
- empiric zosyn transitioned to Augmentin, tolerated well, remains stable/clinically improved. will cont abx through 07/14/24 for total 10 days abx treatment
- BP so far stable and consistently at goal without need for antihypertensive or midodrine
Hx HTN
cont hold home irbesartan, bp consistently at goal without as noted above
Urinary retention:
- Currently voiding spontaneously
- Continue tamsulosin
Ulcerative colitis:
- Status post recent proctocolectomy with end ileostomy 07/13/2024
- Was started on low-dose Eliquis after surgical discharge for DVT prophylaxis in the setting of IBD, continued
DVT prophylaxis: Low-dose Eliquis
CODE STATUS: Full code
Medically stable for discharge home with home services and outpatient follow up recommendations.
Total Time Preparing Discharge __40 minutes including examination of the patient, summary of the hospital stay, instructions for continuing care to all relevant caregivers; and preparation of discharge records, prescriptions, and referral
forms if necessary.
Anticipated Discharge: Today
Subjective/Interval History
-
Date of Service: August 09, 2024
No acute distress. Sitting up comfortably in bed. Reports overall feeling well. Tolerating Augmentin. Denies new acute issues at this time. Eager to go home.
Objective Data
-
Vital Signs:
Vital Signs
Temp Pulse Resp BP Pulse Ox
97.5 F 68 18 127/64 95
08/09/24 03:00 08/09/24 03:00 08/09/24 03:00 08/09/24 03:00 08/09/24 03:00
I&O
08/07/24 08/08/24 08/09/24
06:59 06:59 06:59
Intake Total 2545 / 2545 1850 / 1850 1380 / 1380
Output Total 1450 / 1450 4275 / 4275 1000 / 1000
Balance 1095 / 1095 -2425 / -2425 380 / 380
[2024-08-09 08:21] VITALS: BP 116/62
[2024-08-09] MEDS: AUGMENTIN 875 MG/125 MG 1 TABLET PO (08:26)
[2024-08-09] MEDS: ZYRTEC 10 MG PO (08:26)
[2024-08-09] MEDS: FLOMAX 0.8 MG PO (08:26)
[2024-08-09] MEDS: VISBIOME 1 CAP PO (08:26)
[2024-08-09] MEDS: CRESTOR 5 MG PO (08:26)
[2024-08-09] MEDS: FLORASTOR 250 MG PO (08:26)
[2024-08-09] MEDS: ELIQUIS 2.5 MG PO (08:26)
[2024-08-09] MEDS: DESENEX/MITRAZOL/ZEASORB 1 APPLIC TOPICAL (08:27)
[2024-08-09 11:40] VITALS: BP 128/72
--- NOTE | 2024-08-09 12:39 | PN.CDI ---
CDI
- -
CDI:
Physician Documentation Request
Admit Date: 08/04/24 23:43
Dear Doctor,
Please review the following and provide your response in the progress notes.
Clinical Indicators:
Pt admitted with septic shock secondary to UTI
08/08 Progress Note: 'He had been discharged to rehab with Nance in place after hospitalization for proctocolectomy with end ileostomy. He voided spontaneously after Nance removal but later developed dysuria and chills. In the ED he was found to be
febrile and hypotensive with a significant leukocytosis and a lactic acidosis.'
Please clarify the relationship between these conditions:
Yes, UTI is related to/associated with/due to Nance catheter.
No, UTI is not related to/associated with/due to Nance catheter.
Other
Use of terms such as suspected, likely, concern for, or probable (associated with a specific diagnosis that is being evaluated, monitored, or treated as if it exists) are acceptable and can be coded in the inpatient setting, when documented at the
time of discharge.
Thank you,
Diane Gómez RN, BSN
CDI Specialist
[facility]
Please use your independent medical judgment in providing your response.
--- NOTE | 2024-08-09 14:34 | W.DCSUMMARY ---
Discharge Summary
Discharge Data
Date of Admission: 08/04/24
Date of Discharge: 08/09/24
-
Pending Results: No
Discharge Plan
-
Patient Disposition: Home with Home Care
Discharge Diagnosis/Procedures: Septic shock secondary to urinary tract infection
Condition: Fair
Diet: Regular
Activity: As tolerated
Driving Restrictions: As prior to admission
Bathing Restrictions: None
Activity Restrictions/Additional Instructions:
Follow up with primary care provider in 1 week of discharge.
Augmentin prescribed to continue through 08/14/24 to complete treatment complicated urinary tract infection.
Home irbesartan placed on hold due to hypotension/shock since resolved. Hold continues for now as blood pressure has been consistently at goal without need for antihypertensive. Follow up with primary care provider to determine when safe to resume,
if necessary to resume, and/or if an alternative agent is required instead.
It's recommended that you keep a daily log of your blood pressures at home- to review with your primary care provider in follow up for further evaluation treatment hypertension.
Please take medications as prescribed/recommended and follow up with primary care provider and/or other healthcare provider involved in your care for further adjustment to your medication regimen as necessary.
Referrals:
Atif Hernandez DO [Family Provider, Family Practice] - in one week
Prescriptions:
New
amoxicillin-pot clavulanate 875-125 mg Tablet
1 tab PO Q12 Qty: 11 0RF
Rx Instructions:
08/14/24 last day for antibiotics
Continued
rosuvastatin 5 MG tablet
5 mg PO DAILY
cetirizine [Zyrtec] 10 mg Tablet
10 mg PO DAILY
therapeutic multivitamin Tablet
1 tab PO DAILY
Visbiome 112.5 billion cell Capsule
1 cap PO DAILY
cholecalciferol (vitamin D3) [Vitamin D3] 25 mcg (1,000 unit) Tablet,Chewable
25 mcg PO DAILY
cyanocobalamin (vitamin B-12) 1,500 mcg Tablet,Chewable
1,500 mcg PO DAILY
Eliquis 2.5 mg tablet
2.5 mg PO BID 21 Days Qty: 42 0RF
Rx Instructions:
Ordered x21 days (to end 08/09/24)
tamsulosin 0.4 mg Capsule
0.8 mg PO DAILY 30 Days Qty: 60 0RF
Changed
trazodone 100 mg Tablet
100 mg PO HSPRN PRN (Reason: sleep) Qty: 0 0RF
Held
irbesartan 150 mg Tablet
75 mg PO DAILY
Hold Instructions: Follow up with primary care provider to determine when safe to resume, if necessary to resume, and/or if an alternative agent is required instead.
Discharge Orders:
Discharge Patient (As Directed); Ordered 08/09/24
Ordered By: Anna Mcnally
Discharge Date and Time
Print Language: MACEDONIAN
[2024-08-09 15:00] VITALS: BP 106/64
--- NOTE | 2024-08-09 15:01 | VNURNOTE ---
[facility] liaison met with patient at bedside. He was prepping for DC, nurse was removing his IVs. Reviewed with him that [facility] will see him within 1-2 days after DC. Patient agreeable and looking forward to going home. He is unsure when his ileostomy
appliance was last changed. He has been emptying independently. He stated he has supplies at home - [employer] kit. [facility] referral accepted in [facility].
== END 2024-08-09 16:04 | disposition home health service (06) | DRG 698 ==
LOC: 3 WEST ACU 23:43
PROVIDERS: Internal Medicine; Nurse Practitioner Primary Care; ADMITTING PHYSICIAN Internal Medicine; ATTENDING PHYSICIAN Internal Medicine; CONSULT PHYSICIAN Internal Medicine; EMERGENCY PHYSICIAN Emergency Medicine; FAMILY PHYSICIAN Family Medicine
DX: T83.511A Infection and inflammatory reaction due to indwelling urethral catheter, initial encounter (principal); A41.9 Sepsis, unspecified organism; R65.21 Severe sepsis with septic shock; N17.9 Acute kidney failure, unspecified; N39.0 Urinary tract infection, site not specified; R33.9 Retention of urine, unspecified; I10 Essential (primary) hypertension; Y73.1 Therapeutic (nonsurgical) and rehabilitative gastroenterology and urology devices associated with adverse incidents; Z11.52 Encounter for screening for COVID-19; Z79.899 Other long term (current) drug therapy; Z87.19 Personal history of other diseases of the digestive system; Z79.01 Long term (current) use of anticoagulants; Z87.891 Personal history of nicotine dependence; Z90.49 Acquired absence of other specified parts of digestive tract
CPT/HCPCS: 71045; 74177; 80048; 80053; 81003; 81015; 82533; 82962; 83605; 85025; 85027; 85610; 85730; 87040; 87070; 87086; 87147; 87502; 87811; 93005; 96365; 96366; 96367; 96375; 99291; Q9967

== ENCOUNTER → 2024-08-15 12:22 | Outpatient (REF) | payer BC, SELFPAY ==
[2024-08-15 16:33] LABS: Blood Urea Nitrogen 11 mg/dl (9-20); Calcium 9.1 mg/dl (8.4-10.2); Carbon Dioxide 26 mmol/L (22-30); Chloride 110 mmol/L (98-107); Glucose 100 mg/dl (70-99); Sodium 142 mmol/L (135-145); eGFR > 60.00
== END ==
LOC: HWLAB 12:22
PROVIDERS: ATTENDING PHYSICIAN Surgery; FAMILY PHYSICIAN Family Medicine
DX: Z93.2 Ileostomy status (principal)
CPT/HCPCS: 36415; 80048

== ENCOUNTER → 2024-08-22 10:14 | Outpatient (REF) | payer BC, SELFPAY ==
[2024-08-22 15:45] LABS: Blood Urea Nitrogen 12 mg/dl (9-20); Calcium 9.2 mg/dl (8.4-10.2); Carbon Dioxide 26 mmol/L (22-30); Chloride 106 mmol/L (98-107); Glucose 108 mg/dl (70-99); Potassium 5.1 mmol/L (3.5-5.1); Sodium 141 mmol/L (135-145); eGFR > 60.00
== END ==
LOC: HWLAB 10:14
PROVIDERS: ATTENDING PHYSICIAN Surgery; FAMILY PHYSICIAN Family Medicine
DX: Z93.2 Ileostomy status (principal)
CPT/HCPCS: 36415; 80048

== ENCOUNTER 2024-11-23 06:26 | Day surgery (SDC) | payer BC, SELFPAY ==
[2024-11-15 09:24] LABS: Hematocrit 43.8 % (39.0-52.0); Hemoglobin 15.3 g/dL (13.0-18.0); Mean Corp Hgb Conc. 34.9 g/dL (33.0-37.0); Mean Corpuscular Volume 86.9 fL (80.0-94.0); Platelet Count 184 10^3/uL (130-400); Red Cell Dist. Width 14.4 % (11.5-14.5)
[2024-11-15 10:00] LABS: Blood Urea Nitrogen 16 mg/dl (9-20); Calcium 9.0 mg/dl (8.4-10.2); Carbon Dioxide 26 mmol/L (22-30); Chloride 106 mmol/L (98-107); Glucose 91 mg/dl (70-99); Potassium 4.2 mmol/L (3.5-5.1); Sodium 138 mmol/L (135-145); eGFR > 60.00
[2024-11-15 14:07] VITALS: BMI 29.7
[2024-11-23] VITALS (10 sets, daily range): BP systolic 111–149; BP diastolic 51–80; BMI 29.7
[2024-11-23 12:33] LABS: Urine Character Cloudy (Clear)
[2024-11-23] MEDS: NORMOSOL-R/PLASMALYTE-A 1000 IV (12:38)
[2024-11-23 12:48] LABS: Urine Red Blood Cell 26-30 /HPF (0-2); Urine Squamous Cell 0-2 /LPF (Few); Urine White Cell >100 /HPF (0-5)
[2024-11-23] MEDS: DILAUDID 0.25 MG IV (18:23)
--- NOTE | 2024-11-23 19:20 | PTCARENOTE ---
Pt arrived from PACU at 1920. AAOx3, [place], VSS. Admission assessment completed. CBI infusing through [address] ramirez. Permanent RLQ colostomy intact. Pt placed on modified contact d/t history of MRSA. MRSA swab obtained and sent. Pt oriented to room,
call tan within reach, bed locked and in lowest position. plan of care reviewed with pt, all questions answered. Care ongoing.
--- NOTE | 2024-11-23 23:00 | PTCARENOTE ---
Catheter removed from rubber band traction at 2300 per order. Care ongoing.
[2024-11-24 03:03] VITALS: BP 110/54
[2024-11-24 06:23] VITALS: BMI 29.8
--- NOTE | 2024-11-24 06:28 | PTCARENOTE ---
Catheter removed per order. DTV @ 1200. Pt tolerated well. Ambulated to chair assist x1. Urinal within reach.
[2024-11-24 06:59] LABS: Hematocrit 42.7 % (39.0-52.0); Hemoglobin 15.6 g/dL (13.0-18.0)
[2024-11-24 07:16] LABS: Blood Urea Nitrogen 15 mg/dl (9-20); Calcium 8.5 mg/dl (8.4-10.2); Carbon Dioxide 27 mmol/L (22-30); Chloride 104 mmol/L (98-107); Estimated Creatinine Clearance 70 ml/min; Glucose 106 mg/dl (70-99); Potassium 4.6 mmol/L (3.5-5.1); Sodium 136 mmol/L (135-145); eGFR > 60.00
[2024-11-24 07:50] VITALS: BP 132/67
[2024-11-24] MEDS: CRESTOR 5 MG PO (08:04)
[2024-11-24] MEDS: ZYRTEC 10 MG PO (08:04)
[2024-11-24] MEDS: FLOMAX 0.4 MG PO (08:04)
--- NOTE | 2024-11-24 08:29 | W.PN.URO.CBU ---
Today's Communication / Plan
-
home after voiding trial
Assessment / Plan
-
BPH/JAY/Bladder Stone s/p TURP and Cystolitholapaxy
Diagnosis
-
Date of Service: November 24, 2024
-
Patient Diagnosis: BPH/JAY/Bladder Stone s/p TURP and Cystolitholapaxy
Post Op Day: 1
Subjective
-
'great'
Objective
-
Vital Signs
Temp Pulse Resp BP Pulse Ox
97.9 F 84 16 132/67 96
11/24/24 07:50 11/24/24 07:50 11/24/24 07:50 11/24/24 07:50 11/24/24 07:50
Intake and Output
11/23/24 11/24/24 11/25/24
06:59 06:59 06:59
Intake Total 1440 / 1440
Output Total 2750 / 2750
Balance -1310 / -1310
Intake:
Oral fluids 1440 / 1440
Output:
True Urine Output from CBI 2750 / 2750
Laboratory Results
11/24/24 05:41
11/24/24 05:41
Physical Exam
-
General - well developed, well nourished, no acute distress
Abdomen - soft, non-tender, positive bowel sounds, no distention
Skin - warm & dry with no rash
Neuro - AOx3, no motor deficits
Extremities - no clubbing, no cyanosis, no edema
--- NOTE | 2024-11-24 09:59 | PTCARENOTE ---
Addendum entered by Yodit Tian RN 11/24/24 17:05:
Coban removed as ordered @1055.
Original Note:
pt voided 200 ml bloody urine with 2 large clots. pt experiencing constant dribble of blood from penis. Dr Glasgow made aware and pt's penis wrapped w 2x4 Coban at 0955 as instructed. care ongoing.
--- NOTE | 2024-11-24 10:31 | CM ---
Reviewed the chart notes and spoke with the patient at the bedside. The patient resides in an in-law suite at his granddaughter's home. There is one step to enter. The patient has a rolling walker if needed. The patient reports having had [facility]
in the past, but no SNF. The patient confirmed his [facility] of choice [facility]. CM continues to be available to patient/family and is monitoring medical plan for needs at discharge.
Plan: Discharge to home with no needs identified at this time.
[2024-11-24 11:50] VITALS: BP 128/91
[2024-11-24 15:45] VITALS: BP 121/60
--- NOTE | 2024-11-24 16:03 | VNURNOTE ---
Home Health Liaison spoke with patient to discuss [facility] nurse/therapy, visits, schedule and homebound status. Patient is agreeable and understands that visits at home will be 2-3 x per week to assess and teach medical and ramirez management. Patient
is aware that [facility] will contact them for start of care in 1-2 days after discharge from .
PM [facility] referral in [facility].
--- NOTE | 2024-11-24 17:06 | PTCARENOTE ---
pt unable to void. passing drips of blood only. bladder scan @[address] Glasgow notified.
@1400, pt unable to urinate. bladder scan 416. Dr Glasgow made aware.
order received to place a #22 Fr [address] Nance catheter.
Catheter inserted without difficulty. immediate output was 500 ml bloody urine. no clots noted. pt expressed concerns about going home with catheter. Dr Glasgow made aware. case management aware and [facility] arranged. pt verbalized feeling
comfortable going home and that visiting nurse already contacted him to arrange a visit tomorrow.
== END 2024-11-24 18:58 | disposition home or self-care (01) ==
LOC: SDS 06:26
PROVIDERS: ATTENDING PHYSICIAN Specialist; FAMILY PHYSICIAN Family Medicine
DX: N40.1 Benign prostatic hyperplasia with lower urinary tract symptoms (principal); N32.0 Bladder-neck obstruction; N21.0 Calculus in bladder
CPT/HCPCS: 52601; 52318; 36415; 80048; 81003; 81015; 82365; 85014; 85018; 85027; 87070; 87086; 87147; 88305